=== PATIENT | male | born 1955 | race Caucasian/White ===

== ENCOUNTER 2019-04-28 15:04 | Inpatient (IN) | payer MEDICARE, MEDICAID, SELFPAY ==
[2019-04-28] VITALS (9 sets, daily range): BP systolic 107–139; BP diastolic 77–84; PULSE 87–121; RESP 18–20; TEMP 36.3–37; O2SAT 95–100; BMI 32.3
--- NOTE | ~2019-04-28 | XR_ITS ---
EXAMINATION: XR chest 2V EXAM DATE: 04/28/2019 16:10 INDICATION: Shortness of breath. Chest pain. TECHNIQUE: Frontal and lateral projections of the chest obtained and reviewed. There is no prior ángel dy for comparison. FINDINGS: The lungs are clear. There are no pleural effusions. The cardiomediastinal silhouette is within normal limits. There is no pneumothorax suspected. Patient has diffuse idiopathic skeletal h yperostosis (DISH). IMPRESSION: No acute cardiopulmonary findings. Reviewed, dictated and finalized at location B. R TUNNEL KIL[facility]
--- NOTE | 2019-04-28 15:39 | ECG_ITS ---
Measurements Intervals [place] Rate: 117 P: OR: 0 QRS: 5 QRSD: 89 T: -35 QT: 296 QTc: 414 Interpretive Statements ATRIAL FIBRILLATION WITH RAPID VENTRICULAR RESPONSE ANTEROSEPTAL INFARCT, AGE INDETERMINATE BORDERLINE T WAVE ABNORMALITY- LATERAL LEADS BASELINE ARTIFACT- I, II, AVF, V5-V6 ABNORMAL ECG Electronically Signed On 04-28-2019 16:28:11 [employer] by Kar Hall D.O.
--- NOTE | 2019-04-28 15:47 | PC.NURSE ---
This RN attempted to obtain flu swab, patient grabbed this RNs hand and yells It is intolerable and I wont do it. Pt refused to let RN obtain swab
[2019-04-28 15:50] LABS: Basophils Absolute Auto 0.1 K/mm3 (0.0-0.1); Basophils Percent Auto 0.5 % (0.2-1.2); Eosinophils Absolute Auto 0.1 K/mm3 (0-0.3); Eosinophils Percent Auto 0.3 % (0-4.4); Hematocrit 50.6 % (42.0-52.0); Immature Granulocyte Absolute 0.07 K/mm3 (0.00-0.031); Immature Granulocyte Percent A 0.5 % (0-0.5); Lymphocytes Absolute Auto 2.42 K/mm3 (0.9-3.2); Lymphocytes Percent Auto 16.7 % (18.3-44.2); Mean Corpuscular HGB Conc 33.6 g/dl (32-36); Mean Corpuscular Hemoglobin 28.9 pg (26-34); Mean Corpuscular Volume 86.1 fl (80-100); Mean Platelet Volume 9.7 fl (7.4-10.4); Monocytes Absolute Auto 1.2 K/mm3 (0.1-0.6); Monocytes Percent Auto 8.2 % (2.6-8.5); Neutrophils Absolute Auto 10.7 K/mm3 (1.3-6.7); Neutrophils Percent Auto 73.8 % (45.5-73.1); Platelet Count Result 410 k/mm3 (150-375); Red Blood Count 5.88 M/mm3 (4.6-6.20); Red Cell Distribution Width 15.1 % (11.5-14.5); White Blood Count 14.5 K/mm3 (4.5-10.0)
[2019-04-28 15:59] LABS: Prothrombin Time 12.6 Seconds (11.1-14.7)
[2019-04-28 16:00] LABS: Partial Thromboplastin Time 25.2 SECONDS (22.3-36.8)
[2019-04-28 16:01] LABS: Blood Urea Nitrogen 25 mg/dL (9-20); Calcium 9.3 mg/dL (8.4-10.2); Carbon Dioxide 29 mmol/L (22-30); Chloride 98 mmol/L (98-107); Estimated Glomerular Filt Rate 44; Glucose 146 mg/dL (75-110); Potassium 3.3 mmol/L (3.4-5.0); Sodium 139 mmol/L (137-145)
[2019-04-28 16:13] LABS: Troponin I 0.015 ng/mL (0.000-0.034)
--- NOTE | 2019-04-28 18:04 | ED.GENADULT ---
HPI - General Adult General Chief complaint: Upper Respiratory Infection Stated complaint: I think I have pneumonia Time Seen by Provider: 04/28/19 17:18 History of Present Illness HPI narrative: Patient is a 63-year-old male who presents ER with 2 issues. Patient reports he has had some runny nose with sore throat and productive cough over the last week. Is not gotten better. Is since progressed into him developing shortness of breath with exertion as well as some slight chest tightness. No fevers or chills or body aches. Denies night sweats. No previous cardiac history. No history of arrhythmia. Shortness of breath improves with rest. Chest tightness is without radiation. Related Data Allergies Allergy/AdvReac Type Severity Reaction Status Date / Time No Known Allergies Allergy Verified 04/28/19 17:26 Review of Systems Review of Systems: All systems reviewed & are unremarkable except as noted in HPI and below Constitutional: Constitutional: Denies chills, Reports fatigue and Denies fever(s) ENT: Reports nasal congestion and Reports sore throat Cardiovascular: Cardiovascular: Reports chest pain, Denies rapid heart rate and Denies radiating jaw, neck or arm pain Respiratory: Respiratory: Denies chest congestion, Reports cough, Reports dyspnea and Denies wheezing Gastrointestinal: Gastrointestinal: Denies abdominal pain, Denies nausea and Denies vomiting PMFSH Past Medical History Medical History (Updated 04/28/19 @ 19:25 by Bala Reyna MD) Hypertension Surgical History Surgical History (Updated 04/28/19 @ 18:06 by Bala Reyna MD) H/O hand surgery Social History Social History (Updated 04/28/19 @ 18:07 by Bala Reyna MD) Substance use type: marijuana Gender identity (if verbalized by the patient): Male Exam Narrative: Exam Narrative: GENERAL: Well-appearing, well-nourished, and in no acute distress. HEAD: Normocephalic, atraumatic. ENT: Mucous membranes moist. CHEST: Clear to auscultation. No respiratory distress. HEART: Tachycardic and irregularly irregular. Normal peripheral pulses. ABDOMEN: Soft, nontender, nondistended, normal active bowel sounds. EXTREMITIES: Normal range of motion. No edema. SKIN: Warm, dry, no rash. NEURO: No focal deficits. Alert and oriented x3. PSYCH: Normal mood and affect. Course Course Emergency Course: Patient has had a good response to diltiazem 10 mg IV. His heart rate is 84 bpm but he is still in atrial fibrillation. Will consult cardiology and admit. Vital Signs Vital signs: Vital Signs Temperature 98.1 F 04/28/19 15:36 Pulse Rate 100 04/28/19 15:36 Respiratory Rate 19 04/28/19 15:36 Blood Pressure 107/78 04/28/19 15:36 Pulse Oximetry 100 04/28/19 15:36 Temperature 97.7 F 04/28/19 19:05 Pulse Rate 104 H 04/28/19 19:05 Respiratory Rate 18 04/28/19 19:05 Blood Pressure 139/81 04/28/19 19:05 Pulse Oximetry 95 04/28/19 19:05 Medical Decision Making Vital Signs Vital Signs: Vital Signs Temperature 98.1 F 04/28/19 15:36 Pulse Rate 100 04/28/19 15:36 Respiratory Rate 19 04/28/19 15:36 Blood Pressure 107/78 04/28/19 15:36 Pulse Oximetry 100 04/28/19 15:36 Temperature 97.7 F 04/28/19 19:05 Pulse Rate 104 H 04/28/19 19:05 Respiratory Rate 18 04/28/19 19:05 Blood Pressure 139/81 04/28/19 19:05 Pulse Oximetry 95 04/28/19 19:05 Lab Data Result diagrams: 04/28/19 15:45 04/28/19 15:45 Labs: Lab Results 04/28/19 04/28/19 04/28/19 Range/Units 15:45 15:45 15:45 WBC 14.5 H (4.5-10.0) K/mm3 RBC 5.88 (4.6-6.20) M/mm3 Hgb 17.0 (14.0-18.0) g/dL Hct 50.6 (42.0-52.0) % MCV 86.1 (80-100) fl MCH 28.9 (26-34) pg MCHC 33.6 (32-36) g/dl RDW 15.1 H (11.5-14.5) % Plt Count 410 H (150-375) k/mm3 MPV 9.7 (7.4-10.4) fl Immature Gran % (Auto) 0.5 (0-0.5) % Neut % (Auto) 73.8 H (
[2019-04-28 19:12] LABS: Troponin I 0.019 ng/mL (0.000-0.034)
[2019-04-28] MEDS: ENOXAPARIN 100 MG/ML SYRINGE 95 MG SUB-Q (19:45)
--- NOTE | 2019-04-28 20:46 | PM.IMHP ---
H&P: HPI History of Present Illness Chief complaint: Cough and exertional dyspnea Narrative: This is a pleasant 63 year old male with known HTN who presented to the hospital with a complaint of 1 week of ongoing productive cough of yellowish sputum, exertional shortness of breath, wheezing, sore throat and fevers. The patient today believed he might have pneumonia and decided to come to get checked out. Associated symptoms include congestion and fatigue. The patient was found to be atrial fibrillation w/ RVR in the ER tonight which is new to him. He denies any chest pain or palpitations. He also denies nausea, vomiting, abdominal pain, dysuria, hematuria, diarrhea, rectal bleeding, black stools or LE edema. He denies any other symptoms. Cardiology was consulted by ER provider and he was started on a Diltiazem IV drip for rate control. He was also given therapeutic Lovenox SC. He has no previous history of heart disease. He denies tobacco use but admits that he smokes marijuana all the time. Review of Systems Review of Systems: All systems reviewed & are unremarkable except as noted in HPI and below PMFSH Past Medical History Medical History Hypertension MRSA (methicillin resistant staph aureus) culture positive Surgical History Surgical History H/O hand surgery Previous back surgery Social History Social History Smoking status: Never smoker Alcohol intake: never Substance use: current Substance use type: marijuana Gender identity (if verbalized by the patient): Male Spiritual care concerns: No Comments Past Family medical history is unknown as the patient doesn't have any relation with his family. Meds Home Medications and Allergies Home Medications Medication Instructions Recorded Confirmed Type gabapentin 300 mg PO BID 04/28/19 04/28/19 History meloxicam 7.5 mg PO DAILY 04/28/19 04/28/19 History oxycodone 10 mg PO QID PRN 04/28/19 04/28/19 History Allergies Allergy/AdvReac Type Severity Reaction Status Date / Time No Known Allergies Allergy Verified 04/28/19 17:26 Vital Signs Vital Signs - 24 hr 04/28/19 15:36 04/28/19 17:27 04/28/19 17:32 Temperature 36.7 C 37.0 C Pulse Rate 100 119 H 121 H Respiratory Rate 19 20 Blood Pressure 107/78 125/79 Pulse Oximetry 100 99 04/28/19 19:05 Temperature 36.5 C Pulse Rate 104 H Respiratory Rate 18 Blood Pressure 139/81 Pulse Oximetry 95 Exam Const: General: cooperative, alert and awake Nutritional Appearance: overweight Orientation/consciousness: patient oriented x3 HENMT: Head: normal to inspection General nose exam: Normal external nose present Face and sinus: normal facial exam Mouth: Yes Normal oral and palatal mucosa present and Yes oropharynx normal (erythematous++ ) Eyes: Pupils: Equal, round and reactive pupils present EOM: EOMs intact bilaterally Neck: Neck: supple and no JVD Thyroid: thyroid normal Lymphatic: lymphadenopathy not noted Resp: Effort & Inspection: normal respiratory effort Auscultation: crackles (bibasilar++) Cardio: Rate: tachycardic Rhythm: abnormal rhythm irregularly irregular Heart sounds: no murmurs GI: Inspection: normal to inspection Auscultation: normal bowel sounds Skin: General skin exam: normal color and no rashes or lesions noted Neuro: General: patient oriented x3 Cranial nerves: Yes CN's II-XII intact bilaterally and Yes Equal, round and reactive pupils present Speech: normal speech Motor exam (neuro): 5/5 motor strength present throughout Sensory Exam: normal sensation Extrem: General: normal to inspection and no edema Psych: Mental Status: mental status grossly normal Affect: normal affect H&P: Results Labs Labs: Short CBC 04/28/19 Range/Units 15:45 WBC 14.5 H (4.5-10.0) K/mm3 Hgb 17.0 (14.0
--- NOTE | 2019-04-28 20:54 | PC.NURSE ---
Patient report faxed to IMU.
--- NOTE | 2019-04-28 21:36 | ADMGEN ---
This patient, Coleman Thompson, was admitted to IMU Room 214-01. Patient/family oriented to hospital policies and general routines including ID bracelet, bed and alarms, visiting hours, pain management, procedures, bathroom and other care routines, personal items, smoking policy, room service/diet, and visiting hours. Valuables list has been completed. Information on how to activate the Rapid Response Team has been discussed. Patient/Family are encouraged to report perceived risks to care and to ask questions if they do not understand what they are told or what they should do.
[2019-04-28] MEDS: GUAIFENESIN/DEXTROMETHORPHAN 10 ML UDC PO (22:09)
[2019-04-28 22:36] LABS: Troponin I 0.021 ng/mL (0.000-0.034)
[2019-04-28] MEDS: SODIUM CHLORIDE 0.9% IV 1,000 ML 120 ML IV CONT (23:16)
[2019-04-29] VITALS (27 sets, daily range): BP systolic 112–153; BP diastolic 74–91; PULSE 68–130; RESP 18–73; TEMP 36.1–36.9; O2SAT 96–100
[2019-04-29 04:53] LABS: Basophils Percent Auto 0.2 % (0.2-1.2); Eosinophils Absolute Auto 0.1 K/mm3 (0-0.3); Eosinophils Percent Auto 0.9 % (0-4.4); Hematocrit 43.5 % (42.0-52.0); Hemoglobin 14.7 g/dL (14.0-18.0); Immature Granulocyte Percent A 0.7 % (0-0.5); Lymphocytes Absolute Auto 4.26 K/mm3 (0.9-3.2); Lymphocytes Percent Auto 31.5 % (18.3-44.2); Mean Corpuscular HGB Conc 33.8 g/dl (32-36); Mean Corpuscular Hemoglobin 29.2 pg (26-34); Mean Corpuscular Volume 86.5 fl (80-100); Mean Platelet Volume 9.9 fl (7.4-10.4); Monocytes Absolute Auto 1.2 K/mm3 (0.1-0.6); Monocytes Percent Auto 8.6 % (2.6-8.5); Neutrophils Absolute Auto 7.9 K/mm3 (1.3-6.7); Neutrophils Percent Auto 58.1 % (45.5-73.1); Platelet Count Result 368 k/mm3 (150-375); Red Blood Count 5.03 M/mm3 (4.6-6.20); Red Cell Distribution Width 15.1 % (11.5-14.5); White Blood Count 13.5 K/mm3 (4.5-10.0)
[2019-04-29 05:14] LABS: Blood Urea Nitrogen 26 mg/dL (9-20); Calcium 8.1 mg/dL (8.4-10.2); Carbon Dioxide 26 mmol/L (22-30); Chloride 98 mmol/L (98-107); Estimated CRCL calculation 51 ml/min; Estimated Glomerular Filt Rate 47; Glucose 107 mg/dL (75-110); Potassium 2.8 mmol/L (3.4-5.0); Sodium 137 mmol/L (137-145)
--- NOTE | 2019-04-29 06:00 | ECHO_ITS ---
Patient Info Name: Coleman Thompson Age: 63 years : 1955 Gender: Male Ht: 69 in Wt: 219 lbs BSA: 2.23 m2 HR: 74 bpm Heart Rhythm: Sinus Rhythm Technical Quality: Good Exam Date: 04/29/2019 9:54 AM Exam Location: [facility] Patient Status: Inpatient Admit Date: 04/28/2019 Staff Ordering Physician: Bala Reyna MD [employer] Operator: Alexander Mcknight RDCS, RT Attending Provider: Maciej Hatch MD Referring Physician: Axel MAYS; Exam Type: CA echo doppler color flow Study Info Indications I48.0 - Paroxysmal atrial fibrillation Complete two-dimensional, color flow and Doppler transthoracic echocardiogram is performed. Summary 1. Left ventricular chamber dimension is normal. 2. Left ventricular systolic function is normal, estimated at 55-60%. 3. Left atrial chamber dimension is mildly enlarged. 4. Modest aortic sclerosis otherwise no significant valvular disease. 5. Patient in normal sinus rhythm at the time of this exam. Left Ventricle Left ventricular chamber dimension is normal. Left ventricular systolic function is normal, estimated at 55-60%. There is mild concentric increased left ventricular wall thickness. The left ventricular diastolic function is normal. Right Ventricle Right ventricular chamber dimension is normal. Left Atria Left atrial chamber dimension is mildly enlarged. Right Atria Right atrial chamber dimension is normal. Aortic Valve The aortic valve is trileaflet. There is mild aortic valve sclerosis. Pulmonic Valve The pulmonic valve is not well visualized. Mitral Valve The mitral valve has normal leaflets. Tricuspid Valve The tricuspid valve leaflets are normal. Pericardium/Pleural The pericardium appears normal. Aorta The aortic root size at the sinus of Valsalva is normal. Left Ventricular Outflow Tract Name Value Normal LVOT 2D LVOT Diameter 2.0 cm LVOT Doppler LVOT Peak Gradient 4 mmHg LVOT Mean Gradient 2 mmHg LVOT VTI 19 cm LVOT VTI/AV VTI Ratio 0.7 LVOT Stroke Volume 59 ml LVOT CO 4.5 l/min LVOT CI 2.0 l/min/m2 Pulmonic Valve Name Value Normal PV Doppler PV Peak Gradient 4 mmHg Mitral Valve Name Value Normal MV Doppler MV Decel Stephenson 402 cm/s2 MV PHT 59 ms MV Area (PHT) 3.7 cm2 4.0-5.0 MV Diastolic Fu
[2019-04-29 06:58] LABS: Free T4 Free Thyroxine Reflex 1.28 ng/dL (0.78-2.19)
[2019-04-29 07:38] LABS: Total Triiodothyronine (T3) 1.02 NG/ML (0.97-1.69)
[2019-04-29] MEDS: GABAPENTIN 300 MG CAPSULE PO ×2 (09:19→16:19)
[2019-04-29] MEDS: POTASSIUM CHLORIDE 20 MEQ TABLET 40 MEQ PO ×3 (09:20→17:43)
[2019-04-29] MEDS: ENOXAPARIN 100 MG/ML SYRINGE 95 MG SUB-Q (09:21)
[2019-04-29] MEDS: GUAIFENESIN/DEXTROMETHORPHAN 10 ML UDC PO (09:32)
--- NOTE | 2019-04-29 13:14 | PM.CNCAR ---
Assessment and Plan Additional Plan This is a 63-year-old patient with a reported history of hypertension but does not appear to be on any antihypertensive medications. After a gastrointestinal illness last week he reported the onset of palpitations yet last evening and was found to be in AFib with RVR. With IV diltiazem his rate was controlled and he then converted spontaneously to sinus rhythm. I would recommend: Discontinue IV diltiazem Start oral beta-maria antonia Discontinue Lovenox Start oral anticoagulant Await echocardiogram results Chance Williamson MD [facility] History of Present Illness History of Present Illness Consult date/time: Date of service: 04/29/19 13:14 Consult reason: atrial fibrillation Reason For Visit: Cough and exertional dyspnea Narrative: This is a 63-year-old man up seeing today at the request of the hospitalist because of atrial fibrillation. He is unknown to me prior to this encounter. He entered the hospital through the emergency room last evening where he was reporting episodes of palpitations being aware of tachycardia and irregular pulse as well as some mild chest pain. He states that he began to feel unwell last week with a illness that was marked by some nausea some vomiting and diarrhea. The symptoms have largely subsided but he felt very weak afterwards and then came in last evening because of the symptoms that his heart was beating rapidly and irregularly. He was found to be in atrial fib with rapid ventricular response. He was placed on IV diltiazem and anticoagulated with therapeutic dose of Lovenox. He was seen by the hospitalist last evening. While on IMU on telemetry he has converted to normal sinus rhythm. He is otherwise asymptomatic at this time and seems to be feeling well. IV diltiazem is still running. The patient states that he has longstanding hypertension his home medications however do not include any sort of antihypertensive medications. He is not known to have any dyslipidemia or diabetes he does have a chronic pain problem due to previous back surgery. He states he lives in a home that he calls a [employer] with other friends. [place] He states his PCP is up in the [place] area he does not have a position in the [facility]. He states he has had episodes of palpitations like this off and on in the past but has not had a specific cardiac diagnosis made. He does not describe any exertional chest pain orthopnea PND or edema. An echocardiogram has been done this morning but has not yet been interpreted. Review of Systems Constitutional: Constitutional: Reports fatigue and Reports lethargy Eyes: Eyes: Reports no additional eye complaints ENT: Reports system reviewed and no additional complaints, except as documented Cardiovascular: Cardiovascular: Reports as per HPI and Reports palpitations Respiratory: Respiratory: Reports no additional respiratory complaints Gastrointestinal: Gastrointestinal: Reports as per HPI, Reports no additional gastrointestinal complaints and Reports vomiting Musculoskeletal: Musculoskeletal: Reports no additional musculoskeletal complaints Integumentary/Breasts: Skin/Breast: Reports system reviewed and no additional complaints, except as docu Neurologic: Reports system reviewed and no additional complaints, except as documented PMFSH Past Medical History Medical History Hypertension MRSA (methicillin resistant staph aureus) culture positive Surgical History Surgical History H/O hand surgery Previous back surgery Social History Social History Smoking status: Never smoker Alcohol intake: never Substance use: current Substance use type: marijuana Gender identity (if verbalized by the patient): Male Spiritual care concerns
[2019-04-29] MEDS: SODIUM CHLORIDE 0.9% IV 1,000 ML 120 ML IV CONT ×2 (13:21→23:24)
--- NOTE | 2019-04-29 14:04 | PM.IMPN ---
Progress Note: A&P Assessment and Plan (1) Atrial fibrillation with rapid ventricular response: Code(s): I48.91 - Unspecified atrial fibrillation Status: Acute Assessment and Plan: Cardiology changed to beta-maria antonia and start Eliquis for anticoagulation anticoagulation. TSH w/ reflex T4 fluid overlying low, Echocardiogram pending (2) Acute bronchitis: Qualifiers: Bronchitis organism: unspecified organism Qualified Code(s): J20.9 - Acute bronchitis, unspecified Code(s): J20.9 - Acute bronchitis, unspecified Status: Acute Assessment and Plan: Antitussives, scheduled bronchodilators w/ Xopenex, antipyretics as needed. Cough is already better (3) Acute renal failure: Qualifiers: Acute renal failure type: unspecified Qualified Code(s): N17.9 - Acute kidney failure, unspecified Code(s): N17.9 - Acute kidney failure, unspecified Status: Acute Assessment and Plan: IV fluid challenge overnight. Monitor renal function and urine output. Avoid nephrotoxic agents, continue IV hydration and potassium replacement If creatinine remains elevated then renal sonogram (4) Leukocytosis: Qualifiers: Leukocytosis type: other Qualified Code(s): D72.828 - Other elevated white blood cell count Code(s): D72.829 - Elevated white blood cell count, unspecified Status: Acute Assessment and Plan: Likely secondary to respiratory illness. Repeat a.m. (5) Hypertension: Qualifiers: Hypertension type: unspecified Qualified Code(s): I10 - Essential (primary) hypertension Code(s): I10 - Essential (primary) hypertension Status: Chronic Assessment and Plan: stable. Monitor blood pressure. No listed home meds. Will be on beta-maria antonia now (6) Marijuana abuse: Code(s): F12.10 - Cannabis abuse, uncomplicated Status: Chronic Assessment and Plan: Dr Hatch counseled the patient regarding marijuana cessation. Subjective Date/time seen: 04/29/19 14:04 Interval history: Date of visit 04/29. 58-year-old white male presented with of coughing and weakness new onset atrial fib of unknown duration admitted for the same.. On diltiazem drip converted to sinus rhythm and does feel better. Has been seen by Cardiology and anticoagulation recommended. No chest pain. Echo pending Exam Narrative: Exam Narrative: Blood pressure 112/76 pulse is 70 and regular afebrile Pupils equal reactive to light sclera anicteric Lungs clear CV regular rate rhythm at this time no murmurs or gallops Abdomen soft nontender Extremities without edema distal pulses are 2+ Neuro alert no focal deficits Objective Data Vital Signs Vital Signs: Vital Signs - 24 hr 04/28/19 15:36 04/28/19 17:27 04/28/19 17:32 Temperature 36.7 C 37.0 C Pulse Rate 100 119 H 121 H Respiratory Rate 19 20 Blood Pressure 107/78 125/79 Pulse Oximetry 100 99 04/28/19 19:05 04/28/19 20:45 04/28/19 20:49 Temperature 36.5 C Pulse Rate 104 H 90 90 Respiratory Rate 18 20 Blood Pressure 139/81 125/84 Pulse Oximetry 95 98 04/28/19 21:50 04/28/19 22:00 04/28/19 23:52 Temperature 36.3 C L 36.5 C Pulse Rate 91 91 89 Respiratory Rate 20 18 Blood Pressure 132/84 122/77 Pulse Oximetry 98 98 04/29/19 00:00 04/29/19 02:00 04/29/19 03:55 Temperature 36.6 C Pulse Rate 82 76 83 Respiratory Rate 20 Blood Pressure 129/74 Pulse Oximetry 98 04/29/19 04:00 04/29/19 06:00 04/29/19 07:47 Temperature 36.9 C Pulse Rate 78 75 68 Respiratory Rate 22 H Blood Pressure 125/82 Pulse Oximetry 99 04/29/19 08:34 04/29/19 08:45 04/29/19 11:08 Temperature 36.6 C Pulse Rate 68 74 Respiratory Rate 20 20 Blood Pressure Pulse Oximetry 04/29/19 11:15 04/29/19 12:29 04/29/19 13:58 Temperature 36.6 C 36.1 C L Pulse Rate 71 75 Respiratory Rate 20 18 Blood Pressure 112/76 Pulse Oximetry 96
[2019-04-29] MEDS: METOPROLOL SUCCINATE EXT REL 50 MG TABCR PO (16:14)
[2019-04-29] MEDS: RIVAROXABAN 20 MG TABLET PO (16:19)
[2019-04-30] VITALS (22 sets, daily range): BP systolic 136–172; BP diastolic 78–96; PULSE 63–97; RESP 18–22; TEMP 36.3–36.9; O2SAT 97–99
[2019-04-30 06:04] LABS: Basophils Absolute Auto 0.1 K/mm3 (0.0-0.1); Basophils Percent Auto 0.4 % (0.2-1.2); Eosinophils Absolute Auto 0.2 K/mm3 (0-0.3); Eosinophils Percent Auto 1.2 % (0-4.4); Hematocrit 43.7 % (42.0-52.0); Hemoglobin 14.3 g/dL (14.0-18.0); Immature Granulocyte Absolute 0.14 K/mm3 (0.00-0.031); Immature Granulocyte Percent A 1.2 % (0-0.5); Lymphocytes Absolute Auto 3.49 K/mm3 (0.9-3.2); Mean Corpuscular HGB Conc 32.7 g/dl (32-36); Mean Corpuscular Hemoglobin 28.8 pg (26-34); Mean Corpuscular Volume 87.9 fl (80-100); Mean Platelet Volume 9.9 fl (7.4-10.4); Monocytes Percent Auto 8.1 % (2.6-8.5); Neutrophils Absolute Auto 7.2 K/mm3 (1.3-6.7); Neutrophils Percent Auto 60.1 % (45.5-73.1); Platelet Count Result 402 k/mm3 (150-375); Red Blood Count 4.97 M/mm3 (4.6-6.20); Red Cell Distribution Width 15.8 % (11.5-14.5)
[2019-04-30 06:25] LABS: Alanine Aminotransferase 90 U/L (4-50); Albumin Level 3.4 g/dL (3.5-5.1); Alkaline Phosphatase 89 U/L (38-126); Aspartate Amino Transferase 94 U/L (17-59); Bilirubin,Total 0.4 mg/dL (0.2-1.3); Blood Urea Nitrogen 15 mg/dL (9-20); Carbon Dioxide 28 mmol/L (22-30); Chloride 103 mmol/L (98-107); Estimated CRCL calculation 64 ml/min; Estimated Glomerular Filt Rate > 60; Glucose 99 mg/dL (75-110); Magnesium 1.5 mg/dL (1.6-2.3); Phosphorus 2.5 mg/dL (2.5-4.5); Potassium 3.4 mmol/L (3.4-5.0); Sodium 141 mmol/L (137-145)
[2019-04-30] MEDS: MAGNESIUM SULF 2 GM/WATER 50ML 2 GM/50 ML BAG IVPB (09:07)
[2019-04-30] MEDS: POTASSIUM CHLORIDE 20 MEQ TABLET 40 MEQ PO (09:07)
[2019-04-30] MEDS: METOPROLOL SUCCINATE EXT REL 50 MG TABCR PO (09:08)
[2019-04-30] MEDS: GABAPENTIN 300 MG CAPSULE PO ×2 (09:09→17:26)
[2019-04-30 09:30] LABS: Hepatitis B Surface Antigen Negative (Negative)
[2019-04-30 09:35] LABS: HAV RESULT Negative (Negative); Hepatitis B Core IgM Result Negative (Negative)
[2019-04-30 10:40] LABS: Hepatitis C Virus Antibody Negative (Negative)
--- NOTE | 2019-04-30 11:00 | PM.PNCARD ---
Progress Note: A&P Additional Plan Hypertension with paroxysmal atrial fibrillation seemingly good response to beta-maria antonia. Systemic anticoagulation is indicated and initiated. I am not sure that the patient is going to be compliant with this following discharge Need to make sure the patient is stable and not lightheaded upon arising since he has been anticoagulated. At this point hemodynamics and rhythm appear to be stable and I am not planning on adjusting his medications today Time Spent With Patient Time with patient: 15 - 25 minutes Subjective Date/time seen: Date of service: 04/30/19 11:00 Interval history: Follow-up visit for paroxysmal atrial fibrillation Currently in sinus rhythm on beta-maria antonia Anticoagulated with Xarelto Patient feels well other than lightheadedness when he gets up. Blood pressure and cardiac rhythm are fine reason for lightheadedness is not clear Exam Const: General: comfortable and no acute distress HENMT: Mouth: Yes moist mucous membranes Eyes: Sclera: sclerae normal Pupils: Equal, round and reactive pupils present Neck: Neck: supple and no JVD Thyroid: thyroid normal Resp: Effort & Inspection: normal respiratory effort Auscultation: clear to auscultation bilaterally Cardio: Rate: regular rate Rhythm: regular rhythm GI: Auscultation: normal bowel sounds Skin: General skin exam: normal color Neuro: Cognition (Neuro): normal cognition Extrem: General: normal to inspection Objective Data Vital Signs Vital Signs: Vital Signs - 24 hr 04/29/19 11:08 04/29/19 11:15 04/29/19 12:00 Temperature 36.6 C 36.6 C Pulse Rate 73 Respiratory Rate Blood Pressure Pulse Oximetry 04/29/19 12:29 04/29/19 13:58 04/29/19 14:00 Temperature 36.1 C L Pulse Rate 71 75 74 Respiratory Rate 20 18 Blood Pressure 112/76 Pulse Oximetry 96 04/29/19 14:17 04/29/19 16:00 04/29/19 16:14 Temperature Pulse Rate 77 76 73 Respiratory Rate 18 Blood Pressure Pulse Oximetry 04/29/19 17:00 04/29/19 18:00 04/29/19 19:54 Temperature 36.3 C L 36.2 C L Pulse Rate 73 68 130 H Respiratory Rate 20 73 H Blood Pressure 153/78 H 143/91 H Pulse Oximetry 100 96 04/29/19 20:00 04/29/19 21:21 04/29/19 21:28 Temperature Pulse Rate 73 71 73 Respiratory Rate 18 18 Blood Pressure Pulse Oximetry 04/29/19 22:00 04/29/19 23:54 04/30/19 00:00 Temperature 36.6 C Pulse Rate 81 74 73 Respiratory Rate 18 Blood Pressure 147/87 H Pulse Oximetry 99 04/30/19 02:00 04/30/19 03:18 04/30/19 03:27 Temperature Pulse Rate 63 72 85 Respiratory Rate 18 18 Blood Pressure Pulse Oximetry 04/30/19 04:00 04/30/19 05:58 04/30/19 08:00 Temperature 36.3 C L 36.8 C Pulse Rate 73 69 80 Respiratory Rate 18 22 H Blood Pressure 146/87 H 172/96 H Pulse Oximetry 98 99 04/30/19 09:08 04/30/19 09:42 04/30/19 09:49 Temperature Pulse Rate 84 80 80 Respiratory Rate 20 20 Blood Pressure Pulse Oximetry Intake/Output Intake/Output: Intake & Output 04/27/19 04/28/19 04/29/19 04/30/19 23:59 23:59 23:59 23:59 Intake Total 3820.0 1754 Output Total 1475 2600 Balance 2345.0 -846 Meds/Results Medications: Active Medications Generic Name Dose Route Start Last Admin Trade Name Freq PRN Reason Stop Dose Admin Acetaminophen 650 mg 04/28/19 20:05 Tylenol Tablet PO Q4H PRN Mild Pain (1-3) or Fever Hydrocodone Bitart/Acetaminophen 1 tab 04/28/19 20:05 04/29/19 21:37 [place] 5-325 Mg PO 1 tab Q4H PRN Administration Pain Rated 4-6 Gabapentin 300 mg 04/28/19 23:05 04/30/19 09:09 Neurontin PO 300 mg BID BEN Administration Sodium Chloride 1,000 mls @ 120 mls/hr 04/28/19 23:05 04/30/19 04:41 Normal Saline Iv IV CONT 120 mls/hr .Q8H20M BEN Infusion Levalbuterol HCl 1.25 mg 04/29/19 02:00 04/30/19 09:42 Xopenex 1.25 Mg/0.5 Ml INHALATION 1.25 mg Q6HRT BEN Adm
--- NOTE | 2019-04-30 12:29 | PM.IMPN ---
Progress Note: A&P Assessment and Plan (1) Atrial fibrillation with rapid ventricular response: Code(s): I48.91 - Unspecified atrial fibrillation Status: Acute Assessment and Plan: Cardiology changed to beta-maria antonia and started xarelto for anticoagulation. TSH w/ reflex T4 fluid overlying low, Echocardiogram normal with EF 50-55% (2) Acute bronchitis: Qualifiers: Bronchitis organism: unspecified organism Qualified Code(s): J20.9 - Acute bronchitis, unspecified Code(s): J20.9 - Acute bronchitis, unspecified Status: Acute Assessment and Plan: Antitussives, scheduled bronchodilators w/ Xopenex, antipyretics as needed. Cough is already better (3) Acute renal failure: Qualifiers: Acute renal failure type: unspecified Qualified Code(s): N17.9 - Acute kidney failure, unspecified Code(s): N17.9 - Acute kidney failure, unspecified Status: Acute Assessment and Plan: IV fluid challenged. Monitor renal function and urine output. creatinine down to 1.2 today (4) Leukocytosis: Qualifiers: Leukocytosis type: other Qualified Code(s): D72.828 - Other elevated white blood cell count Code(s): D72.829 - Elevated white blood cell count, unspecified Status: Acute Assessment and Plan: Likely secondary to respiratory illness. Repeat today down to 12K (5) Hypertension: Qualifiers: Hypertension type: unspecified Qualified Code(s): I10 - Essential (primary) hypertension Code(s): I10 - Essential (primary) hypertension Status: Chronic Assessment and Plan: stable. Monitor blood pressure. No listed home meds. Will be on beta-maria antonia now (6) Marijuana abuse: Code(s): F12.10 - Cannabis abuse, uncomplicated Status: Chronic Assessment and Plan: Dr Hatch counseled the patient regarding marijuana cessation. (7) Elevated LFTs: Code(s): R94.5 - Abnormal results of liver function studies Status: Acute Assessment and Plan: check hep A,B,C profile Subjective Date/time seen: 04/30/19 12:29 Interval history: Date of visit . 58-year-old white male presented with coughing and weakness new onset atrial fib of unknown duration admitted for the same.. On diltiazem drip converted to sinus rhythm and does feel better. Has been seen by Cardiology and anticoagulation recommended. No chest pain. Echo normal but some lightheaded today Exam Narrative: Exam Narrative: Blood pressure 144/86 pulse is 80 and regular afebrile Pupils equal reactive to light sclera anicteric Lungs clear with faint end expiratory wheeze CV regular rate rhythm at this time no murmurs or gallops Abdomen soft nontender Extremities without edema distal pulses are 2+ Neuro alert no focal deficits Objective Data Vital Signs Vital Signs: Vital Signs - 24 hr 04/29/19 13:58 04/29/19 14:00 04/29/19 14:17 Temperature Pulse Rate 75 74 77 Respiratory Rate 18 18 Blood Pressure Pulse Oximetry 04/29/19 16:00 04/29/19 16:14 04/29/19 17:00 Temperature 36.3 C L Pulse Rate 76 73 73 Respiratory Rate 20 Blood Pressure 153/78 H Pulse Oximetry 100 04/29/19 18:00 04/29/19 19:54 04/29/19 20:00 Temperature 36.2 C L Pulse Rate 68 130 H 73 Respiratory Rate 73 H Blood Pressure 143/91 H Pulse Oximetry 96 04/29/19 21:21 04/29/19 21:28 04/29/19 22:00 Temperature Pulse Rate 71 73 81 Respiratory Rate 18 18 Blood Pressure Pulse Oximetry 04/29/19 23:54 04/30/19 00:00 04/30/19 02:00 Temperature 36.6 C Pulse Rate 74 73 63 Respiratory Rate 18 Blood Pressure 147/87 H Pulse Oximetry 99 04/30/19 03:18 04/30/19 03:27 04/30/19 04:00 Temperature 36.3 C L Pulse Rate 72 85 73 Respiratory Rate 18 18 18 Blood Pressure 146/87 H Pulse Oximetry 98 04/30/19 05:58 04/30/19 08:00 04/30/19 09:08 Temperature 36.8 C Pulse Rate 69 80 84 Re
[2019-04-30] MEDS: RIVAROXABAN 20 MG TABLET PO (17:27)
[2019-05-01] VITALS (11 sets, daily range): BP systolic 142–156; BP diastolic 69–90; PULSE 56–99; RESP 18–20; TEMP 36.6–37; O2SAT 96–98
[2019-05-01 05:16] LABS: Basophils Absolute Auto 0.1 K/mm3 (0.0-0.1); Basophils Percent Auto 0.5 % (0.2-1.2); Eosinophils Absolute Auto 0.2 K/mm3 (0-0.3); Eosinophils Percent Auto 1.2 % (0-4.4); Hematocrit 42.7 % (42.0-52.0); Immature Granulocyte Absolute 0.28 K/mm3 (0.00-0.031); Immature Granulocyte Percent A 1.9 % (0-0.5); Lymphocytes Absolute Auto 4.21 K/mm3 (0.9-3.2); Lymphocytes Percent Auto 29.1 % (18.3-44.2); Mean Corpuscular HGB Conc 32.8 g/dl (32-36); Mean Corpuscular Hemoglobin 29.2 pg (26-34); Mean Corpuscular Volume 89.1 fl (80-100); Mean Platelet Volume 9.7 fl (7.4-10.4); Monocytes Absolute Auto 1.3 K/mm3 (0.1-0.6); Monocytes Percent Auto 9.3 % (2.6-8.5); Neutrophils Absolute Auto 8.4 K/mm3 (1.3-6.7); Platelet Count Result 423 k/mm3 (150-375); Red Blood Count 4.79 M/mm3 (4.6-6.20); Red Cell Distribution Width 15.8 % (11.5-14.5); White Blood Count 14.5 K/mm3 (4.5-10.0)
[2019-05-01 05:40] LABS: Blood Urea Nitrogen 14 mg/dL (9-20); Carbon Dioxide 30 mmol/L (22-30); Chloride 99 mmol/L (98-107); Estimated CRCL calculation 69 ml/min; Estimated Glomerular Filt Rate > 60; Glucose 95 mg/dL (75-110); Magnesium 1.7 mg/dL (1.6-2.3); Potassium 3.2 mmol/L (3.4-5.0); Sodium 140 mmol/L (137-145)
[2019-05-01] MEDS: POTASSIUM CHLORIDE 20 MEQ TABLET 40 MEQ PO (10:11)
[2019-05-01] MEDS: DOXYCYCLINE HYCLATE 100 MG TABLET PO (10:12)
[2019-05-01] MEDS: METOPROLOL SUCCINATE EXT REL 50 MG TABCR PO (10:12)
[2019-05-01] MEDS: GABAPENTIN 300 MG CAPSULE PO (10:13)
[2019-05-01] MEDS: methylPREDNISolone SOD SUCC 125 MG VIAL 60 MG IV PUSH (10:13)
--- NOTE | 2019-05-01 16:20 | PM.DS ---
DS: Diagnosis Admitting Diagnosis Admitting Diagnosis: Unspecified atrial fibrillation Discharge Diagnosis (1) Atrial fibrillation with rapid ventricular response: Code(s): I48.91 - Unspecified atrial fibrillation Status: Acute Assessment and Plan: Cardiology changed to beta-maria antonia and started xarelto for anticoagulation. TSH borderline low, Echocardiogram normal with EF 50-55% Discharge home on metoprolol succinate 50 daily and Xarelto 20 daily (2) Acute bronchitis: Qualifiers: Bronchitis organism: unspecified organism Qualified Code(s): J20.9 - Acute bronchitis, unspecified Code(s): J20.9 - Acute bronchitis, unspecified Status: Acute Assessment and Plan: Persistent cough with sputum production and low-grade leukocytosis. Still had expiratory wheezes though chest x-ray and physical exam lungs were clear Placed on doxycycline 100 b.i.d. for 7 days and prednisone 20 b.i.d. for 6 days. (3) Acute renal failure: Qualifiers: Acute renal failure type: unspecified Qualified Code(s): N17.9 - Acute kidney failure, unspecified Code(s): N17.9 - Acute kidney failure, unspecified Status: Acute Assessment and Plan: With initial IV hydration creatinine continue to fall and a day of discharge was 1.1 (4) Leukocytosis: Qualifiers: Leukocytosis type: other Qualified Code(s): D72.828 - Other elevated white blood cell count Code(s): D72.829 - Elevated white blood cell count, unspecified Status: Acute Assessment and Plan: Likely secondary to respiratory illness. Chest x-ray clear and no fever (5) Hypertension: Qualifiers: Hypertension type: unspecified Qualified Code(s): I10 - Essential (primary) hypertension Code(s): I10 - Essential (primary) hypertension Status: Chronic Assessment and Plan: Fair control with beta-maria antonia daily. Will follow with primary care (6) Marijuana abuse: Code(s): F12.10 - Cannabis abuse, uncomplicated Status: Chronic Assessment and Plan: Dr Hatch counseled the patient regarding marijuana cessation. (7) Elevated LFTs: Code(s): R94.5 - Abnormal results of liver function studies Status: Acute Assessment and Plan: Mildly elevated. Probable fatty infiltration. Hep a B and C profile negative. Liver was not imaged DS: Summary Hospital Course Hospital Course: 63-year-old white male presented to the emergency room for fear that he might have pneumonia. He had been coughing for several days. Chest x-ray was clear but found to have AFib rapid ventricular response. Placed on diltiazem drip and spontaneously converted to sinus rhythm. Seen by Cardiology and placed on beta-maria antonia daily 50 mg of metoprolol succinate along with Xarelto 20 daily. Echo revealed no structural abnormalities with ejection fraction 50-55% Will follow-up with his primary care which is in a suburb of [place]. If he stays in this area will follow-up with [facility] in 3-4 weeks Time Spent with Patient Time attestation: Total time spent providing and/or coordinating discharge services: 35 minutes Exam Narrative: Exam Narrative: Condition on discharge Blood pressure 144/84 pulse is 76 Lungs prolonged expiratory phase very faint end expiratory wheeze no rales or areas of consolidation CV regular rate and rhythm no murmurs Extremities without edema distal pulses are 2+ He was up and about with feeling better though occasional lightheadedness without change in blood pressure DS: Data Data Completed and Pending Labs on day of discharge: Labs from last 24 hours 05/01/19 05/01/19 04:30 04:30 WBC 14.5 H RBC 4.79 Hgb 14.0 Hct 42.7 MCV 89.1 MCH 29.2 MCHC 32.8 RDW 15.8 H Plt Count 423 H MPV 9.7 Immature Gran % (Auto) 1.9 H Neut % (Auto) 58.0 Lymph % (Auto) 29.1 Grady % (Auto) 9.3 H Eos % (Auto) 1.2 Baso % (Auto)
== END 2019-05-01 15:00 | disposition home or self-care (01) | DRG 309 ==
LOC: ANHED 20:10 → ANHIMU 20:50
PROVIDERS: Admitting Provider Family Medicine; Emergency Provider Emergency Medicine; Visit Provider Internal Medicine
DX: I48.91 Unspecified atrial fibrillation (principal); N17.9 Acute kidney failure, unspecified; J20.9 Acute bronchitis, unspecified; D72.828 Other elevated white blood cell count; I10 Essential (primary) hypertension; F12.10 Cannabis abuse, uncomplicated; R94.5 Abnormal results of liver function studies
CPT/HCPCS: 36415; 71046; 80048; 80074; 80076; 83735; 84100; 84132; 84439; 84443; 84480; 84484; 85025; 85610; 85730; 87081; 93005; 93306; 94640; 96365; 96366; 96372; 96376; 99285; A9270; J1650; J2930; J3475; J3480; J7030

== ENCOUNTER 2021-03-19 23:12 | Emergency (ER) | payer MEDICARE, SELFPAY ==
--- NOTE | ~2021-03-19 | XR_ITS ---
EXAMINATION: XR chest 2V DATE: 03/19/2021 23:47 INDICATION: Arrhythmia. TECHNIQUE: Frontal and lateral views of the chest were obtained. COMPARISON: Chest 2 views 04/28/2019 FINDINGS: The chest demonstrates clear lungs without pneumonia, pleural effusion, or pneumothorax. Th e heart size is normal. IMPRESSION: 1. No acute cardiopulmonary disease. Reviewed, dictated and finalized at location A. ICAL EDUCATION CONSULTANT
--- NOTE | 2021-03-19 23:14 | ECG_ITS ---
Measurements Intervals [place] Rate: 75 P: [place]: 0 QRS: -12 QRSD: 95 T: 20 QT: 390 QTc: 436 Interpretive Statements ATRIAL FIBRILLATION MINIMAL Q WAVES- INFERIOR LEADS ANTEROSEPTAL INFARCT, AGE INDETERMINATE BASELINE ARTIFACT- I, AVR, AVL, V2-V3, V6 ABNORMAL ECG Electronically Signed On 03-20-2021 6:39:29 REAL ESTATE ASSESSOR by Kar Hall D.O.
[2021-03-19 23:25] VITALS: BP 100/70; PULSE 55; RESP 16; TEMP 36.1; O2SAT 96
[2021-03-19 23:32] LABS: Basophils Percent Auto 0.4 % (0.2-1.2); Eosinophils Percent Auto 0.3 % (0-4.4); Hematocrit 53.1 % (42.0-52.0); Hemoglobin 17.8 g/dL (14.0-18.0); Immature Granulocyte Absolute 0.04 K/mm3 (0.00-0.031); Immature Granulocyte Percent A 0.5 % (0-0.5); Lymphocytes Absolute Auto 2.64 K/mm3 (0.9-3.2); Lymphocytes Percent Auto 35.5 % (18.3-44.2); Mean Corpuscular HGB Conc 33.5 g/dl (32-36); Mean Corpuscular Hemoglobin 28.3 pg (26-34); Mean Corpuscular Volume 84.3 fl (80-100); Mean Platelet Volume 9.4 fl (7.4-10.4); Monocytes Absolute Auto 0.8 K/mm3 (0.1-0.6); Monocytes Percent Auto 10.1 % (2.6-8.5); Neutrophils Percent Auto 53.2 % (45.5-73.1); Platelet Count Result 219 k/mm3 (150-375); Red Cell Distribution Width 17.8 % (11.5-14.5); White Blood Count 7.4 K/mm3 (4.5-10.0)
[2021-03-19 23:41] LABS: Alanine Aminotransferase 33 U/L (4-50); Alkaline Phosphatase 97 U/L (38-126); Anion Gap 10 mmol/L (8-16); Aspartate Amino Transferase 42 U/L (17-59); Bilirubin,Total 0.6 mg/dL (0.2-1.3); Blood Urea Nitrogen 24 mg/dL (9-20); Calcium 8.8 mg/dL (8.4-10.2); Carbon Dioxide 28 mmol/L (22-30); Chloride 97 mmol/L (98-107); Estimated CRCL calculation 41 ml/min; Estimated Glomerular Filt Rate 38; Glucose 114 mg/dL (65-110); Lipase 345 U/L (23-300); Potassium 3.8 mmol/L (3.4-5.0); Sodium 135 mmol/L (137-145)
[2021-03-19 23:47] LABS: INR 1.4; Prothrombin Time 17.1 Seconds (11.1-14.7)
[2021-03-19 23:48] LABS: Partial Thromboplastin Time 34.3 SECONDS (22.3-36.8)
[2021-03-19 23:52] LABS: Troponin I < 0.012 ng/mL (0.000-0.034)
[2021-03-20 02:21] VITALS: BP 118/84; PULSE 78; RESP 14; O2SAT 97
[2021-03-20 02:26] VITALS: BP 118/84; PULSE 73; RESP 17; O2SAT 96
[2021-03-20] MEDS: ASPIRIN 81 MG CHEWABLE TABLET 324 MG PO (02:38)
[2021-03-20 02:50] VITALS: BP 122/88; PULSE 65; RESP 18; O2SAT 95
[2021-03-20] MEDS: SODIUM CHLORIDE 0.9% IV 1,000 ML 999 ML IV CONT (02:52)
[2021-03-20 03:11] LABS: Troponin I < 0.012 ng/mL (0.000-0.034)
[2021-03-20 03:31] VITALS: BP 128/84; PULSE 68; RESP 23; O2SAT 94
--- NOTE | 2021-03-20 04:09 | ED.ARRPALP ---
HPI - Arrhythmia/Palpitations General Chief Complaint: Arrhythmia/Palpitations Stated Complaint: irregular heart beat, heart races Time Seen by Provider: 03/20/21 02:27 History of Present Illness HPI narrative: Patient is a 65-year-old male who presents ER with heart palpitations. Began early in the afternoon. Stout like his heart was racing. Unsure how long it lasted. Unsure if there is any aggravating factors. No chest pain or chest pressure. No loss of consciousness or dizziness. No focal numbness or weakness in arm or leg. Reports compliance with home medications. Has history of atrial fibrillation. He sees Dr. Williamson. He is on Xarelto as well as metoprolol. Related Data Home Medications Medication Instructions Recorded Confirmed gabapentin 300 mg PO BID 04/28/19 04/28/19 oxycodone 10 mg PO QID PRN 04/28/19 06/27/20 amlodipine 10 mg tablet 10 mg PO DAILY 06/27/20 06/27/20 benazepril 10 mg tablet 10 mg PO DAILY 06/27/20 06/27/20 bupropion HCl 150 mg 24 hr tablet, 150 mg PO QAM 06/27/20 06/27/20 extended release duloxetine 60 mg capsule,delayed 60 mg PO DAILY 06/27/20 06/27/20 release Allergies Allergy/AdvReac Type Severity Reaction Status Date / Time No Known Allergies Allergy Verified 04/28/19 17:26 Review of Systems Review of Systems: All systems reviewed & are unremarkable except as noted in HPI and below Constitutional: Constitutional: Denies chills, Denies fever(s) and Denies weakness ENT: Denies nasal congestion and Denies sore throat Cardiovascular: Cardiovascular: Denies chest pain, Reports rapid heart rate and Denies radiating jaw, neck or arm pain Respiratory: Respiratory: Denies cough, Denies dyspnea and Denies wheezing Gastrointestinal: Gastrointestinal: Denies nausea and Denies vomiting Neurologic: Denies dizziness, Denies syncope, Denies focal weakness and Denies numbness PMFSH Past Medical History Medical History (Updated 03/20/21 @ 04:13 by Bala Reyna MD) Hypertension MRSA (methicillin resistant staph aureus) culture positive Surgical History Surgical History H/O hand surgery Previous back surgery Social History Social History Smoking status: Never smoker Alcohol intake: never Substance use: current Substance use type: marijuana Gender identity (if verbalized by the patient): Male Spiritual care concerns: No Exam Narrative: GENERAL: Well-appearing, well-nourished, and in no acute distress. HEAD: Normocephalic, atraumatic. EYES: PERRL and EOMI. NECK: Supple. CHEST: Clear to auscultation. No respiratory distress. HEART: Irregular regular rate and rhythm. Normal peripheral pulses. ABDOMEN: Soft, nontender, nondistended. EXTREMITIES: Normal range of motion. No edema. SKIN: Warm, dry, no rash. NEURO: Alert and oriented x3. PSYCH: Normal mood and affect. Course Course Emergency Course: Appears dehydrated on blood work. Given 1 L IV fluid. No A. fib with RVR. Recommend follow-up with PCP. Vital Signs Vital signs: Vital Signs Temperature 97.0 F L 03/19/21 23:25 Pulse Rate 55 L 03/19/21 23:25 Respiratory Rate 16 03/19/21 23:25 Blood Pressure 100/70 03/19/21 23:25 Pulse Oximetry 96 03/19/21 23:25 Temperature 97.0 F L 03/19/21 23:25 Pulse Rate 68 03/20/21 03:31 Respiratory Rate 23 H 03/20/21 03:31 Blood Pressure 128/84 03/20/21 03:31 Pulse Oximetry 94 03/20/21 03:31 MDM - Arrhythmia/Palpitations Lab Data Result diagrams: 03/19/21 23:21 03/19/21 23:21 Labs: Lab Results 03/19/21 03/19/21 03/19/21 Range/Units 23:21 23:21 23:21 WBC 7.4 (4.5-10.0) K/mm3 RBC 6.30 H (4.6-6.20) M/mm3 Hgb 17.8 D (14.0-18.0) g/dL Hct 53.1 H (42.0-52.0) % MCV 84.3 (80-100) fl MCH 28.3 (26-34) pg MCHC 33.5 (32-36) g/dl RDW 17.8 H (11.5-14.5)
[2021-03-20 04:24] VITALS: BP 122/84; PULSE 66; RESP 18; O2SAT 96
== END 2021-03-20 04:26 | disposition home or self-care (01) ==
PROVIDERS: Emergency Provider Emergency Medicine
DX: R00.2 Palpitations (principal); E86.0 Dehydration; I48.91 Unspecified atrial fibrillation; I10 Essential (primary) hypertension; Z86.14 Personal history of Methicillin resistant Staphylococcus aureus infection; R94.31 Abnormal electrocardiogram [ECG] [EKG]; Z79.01 Long term (current) use of anticoagulants
CPT/HCPCS: 36415; 71046; 80053; 83690; 84484; 85025; 85610; 85730; 93005; 96360; 99284; A9270; J7030

== ENCOUNTER 2021-10-16 12:54 | Emergency (ER) | payer MEDICARE, SELFPAY ==
[2021-10-16] VITALS (14 sets, daily range): BP systolic 114–131; BP diastolic 74–96; PULSE 54–90; RESP 13–23; TEMP 36.2–36.6; O2SAT 92–100
--- NOTE | ~2021-10-16 | CT_ITS ---
EXAMINATION: CT thoracic lumbar wo con DATE: 10/16/2021 15:01 INDICATION: Back pain. Fall. TECHNIQUE: Computed tomography (CT) of the thoracic and lumbar spine was performed without intravenou s contrast. Automated exposure control and iterative reconstruction technique were employed. The dose -length product was 1927.53 mGy-cm. COMPARISON: None FINDINGS: CT THORACIC SPINE: There is 8 degrees levocurvature of upper thoracic spine. There is mild chronic an terior wedging of T8-T12 vertebral bodies. There is decreased disc height at all levels, severe at T1 -T2, T2-T3, T3-T4, T6-T7, and T7-T8. There is multilevel facet joint osteoarthritis. There is multile vira mild neural foraminal stenosis bilaterally. On the right, there is moderate to severe neural fora radha stenosis at T1-T2, T2-T3, T3-T4, T6-T7, and T10-T11. On the left, there is moderate to severe n eural foraminal stenosis at T1-T2, T2-T3, T3-T4, and T10-T11. There is mild central canal stenosis at most levels. CT LUMBAR SPINE: There is 13 degrees levoscoliosis of lumbar spine. There are changes of anterior fus ion procedure at L5-S1 with interbody devices. There is severely decreased disc height from L1-L2 thr ough L3-L4 with interbody fusion at L2-L3. There is mildly decreased disc height at L4-L5. Partially visualized are cysts in the left kidney. The following disc levels are specifically discussed: L1-L2: The disc is bulging. There is severe bilateral facet joint osteoarthritis. There is moderate b ilateral neural foraminal stenosis. There is moderate central canal stenosis. L2-L3: There is ankylosis of the facet joints with severe hypertrophy. There is moderate right and mi ld left neural foraminal stenosis. There is mild central canal stenosis. L3-L4: The disc is bulging. There is severe bilateral facet joint osteoarthritis. There is moderate b ilateral neural foraminal stenosis. There is moderate central canal stenosis. L4-L5: The disc is bulging. There is severe bilateral facet joint osteoarthritis. There is moderate b ilateral neural foraminal stenosis. There is mild central canal stenosis. L5-S1: There is severe bilateral facet joint osteoarthritis. There is moderate bilateral neural rj inal stenosis. There is mild central canal stenosis with posterior decompression. IMPRESSION: 1. No fracture. 2. Severe thoracic and lumbar spondylosis. 3. Scoliosis. Reviewed, dictated and finalized at location A.
--- NOTE | ~2021-10-16 | XR_ITS ---
EXAMINATION: XR chest 2V 10/16/2021 15:11 INDICATION: Status post fall. Right-sided chest pain. PROCEDURE: 2 view chest COMPARISON: 03/19/2021 FINDINGS: The lungs are clear. The cardiomediastinal silhouette is within normal limits. There are no pleural effusions. There is no pneumothorax suspected. 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 IMPRESSION: 1: NO ACUTE CARDIOPULMONARY DISEASE. Reviewed, dictated and finalized at location B.
--- NOTE | ~2021-10-16 | XR_ITS ---
EXAMINATION: XR ankle LT min 3V DATE: 10/16/2021 15:11 INDICATION: Left ankle pain. Fall. TECHNIQUE: 4 views of left ankle were obtained. COMPARISON: None. FINDINGS: Bone alignment is normal. No fracture. There is mild osteoarthritis of tibiotalar joint. Th ere is moderate to severe midfoot osteoarthritis. There are enthesophytes at the posterior and planta r aspects of calcaneal tuberosity. There is ankle soft tissue swelling. IMPRESSION: 1. Polyarticular osteoarthritis. Reviewed, dictated and finalized at location A.
--- NOTE | ~2021-10-16 | CT_ITS ---
EXAMINATION: CT brain wo con DATE: 10/16/2021 15:00 INDICATION: Head injury. TECHNIQUE: Computed tomography (CT) of the head was performed without intravenous contrast. The mA wa s adjusted according to patient size. Iterative reconstruction technique was employed. The dose-lengt h product was 681.00 mGy-cm. COMPARISON: None FINDINGS: There is no intracranial hemorrhage, acute infarction, or abnormal intracranial mass lesion . There are scattered areas of low attenuation in the cerebral white matter, which is within normal l imits for the patient's age. The ventricles are normal in size. There is an old blowout fracture of m edial wall of the left orbit. There is minimal mucosal thickening in the ethmoid sinuses. The mastoid air cells are normal. IMPRESSION: 1. Normal aging brain. Reviewed, dictated and finalized at location A. IMPRESSION: 1. Normal aging brain.
--- NOTE | ~2021-10-16 | CT_ITS ---
EXAMINATION: CT cervical spine wo con DATE: 10/16/2021 15:00 INDICATION: Neck pain. Fall. TECHNIQUE: Computed tomography (CT) of the cervical spine was performed without intravenous contrast. Automated exposure control and iterative reconstruction technique were employed. The dose-length pro duct was 511.97 mGy-cm. COMPARISON: None FINDINGS: There is 4 degrees dextrocurvature of cervical spine. There is 2 mm anterolisthesis of C4 o n C5, 2 mm retrolisthesis of C5 on C6, and 2 mm anterolisthesis of C7 on T1. There is mild chronic an terior wedging of T1 vertebral body. There is severely decreased disc height at C3-C4, C4-C5, C5-C6, and C6-C7 and mildly decreased disc height at C7-T1. Osseous central spinal canal is developmentally small. The following disc levels are specifically discussed: C2-C3: There is mild bilateral uncovertebral joint osteoarthritis. There is moderate right and severe left facet joint osteoarthritis. There is mild left neural foraminal stenosis. There is no central c anal stenosis. C3-C4: There is severe bilateral uncovertebral joint osteoarthritis. There is severe bilateral facet joint osteoarthritis. There is mild right and moderate left neural foraminal stenosis. There is mild central canal stenosis. C4-C5: There is severe bilateral uncovertebral joint osteoarthritis. There is severe bilateral facet joint osteoarthritis. There is mild right and moderate left neural foraminal stenosis. There is moder ate central canal stenosis. C5-C6: There is severe bilateral uncovertebral joint osteoarthritis. There is severe right and modera te left facet joint osteoarthritis. There is mild bilateral neural foraminal stenosis. There is moder ate central canal stenosis. C6-C7: There is severe bilateral uncovertebral joint osteoarthritis. There is moderate right and pura re left facet joint osteoarthritis. There is moderate bilateral neural foraminal stenosis. There is m ild central canal stenosis. C7-T1: There is moderate left uncovertebral joint osteoarthritis. There is severe bilateral facet diana nt osteoarthritis. There is mild bilateral neural foraminal stenosis. There is no central canal steno sis. IMPRESSION: 1. No fracture. 2. Severe cervical spondylosis. Reviewed, dictated and finalized at location A.
--- NOTE | ~2021-10-16 | XR_ITS ---
XR pelvis 1-2V 10/16/2021 15:12 Indication: Status post fall from 5 feet. Right hip pain. Procedure: AP pelvis Comparison: No prior studies for comparison. Findings: There is severe bilateral osteoarthritis of the hips. Pelvic rings are intact. No acute fra cture or traumatic malalignment. No foreign bodies. Sacral foramen are symmetric. Impression: 1: No acute fracture. 2: Severe osteoarthritis of the hips. Reviewed, dictated and finalized at location B. Impression: 1: No acute fracture. 2: Severe osteoarthritis of the hips.
--- NOTE | 2021-10-16 14:44 | ED.FALL ---
HPI - Fall General Chief Complaint: Fall Stated Complaint: neck pain, fall Time Seen by Provider: 10/16/21 14:08 Source: patient Mode of arrival: ambulatory Limitations: no limitations History of Present Illness HPI Narrative: This is a 66-year-old male that presents to the emergency department for a fall with head injury 6 days ago. Reports he fell about 5 feet off of a porch. He did hit his head. He thinks he might of lost consciousness. He is on a blood thinner. He has had continued headaches and neck pain since which prompted him to be seen. He has not been evaluated since the fall yet. He also reports back pain and left ankle pain. Denies vision changes, chest pain, abdominal pain, vomiting, numbness, or weakness. Related Data Home Medications Medication Instructions Recorded Confirmed gabapentin 300 mg capsule 300 mg PO BID 04/28/19 04/28/19 oxycodone 10 mg tablet 10 mg PO QID PRN Back Pain 04/28/19 06/27/20 amlodipine 10 mg tablet 10 mg PO DAILY 06/27/20 06/27/20 benazepril 10 mg tablet 10 mg PO DAILY 06/27/20 06/27/20 bupropion HCl 150 mg 24 hr tablet, 150 mg PO QAM 06/27/20 06/27/20 extended release duloxetine 60 mg capsule,delayed 60 mg PO DAILY 06/27/20 06/27/20 release Allergies Allergy/AdvReac Type Severity Reaction Status Date / Time No Known Allergies Allergy Verified 10/16/21 14:03 Review of Systems Review of Systems: CONSTITUTIONAL: Denies fever EYES: Denies visual changes CARDIOVASCULAR: Denies chest pain GASTROINTESTINAL: Denies abdominal pain, nausea, vomiting MUSCULOSKELETAL: Reports back pain, joint pain, and myalgia. NEUROLOGIC: Reports headache. Denies numbness, or weakness. All systems reviewed & are unremarkable except as noted in HPI and below [facility] Past Medical History Medical History (Updated 10/16/21 @ 15:36 by Falguni Rojas PA-C) Atrial fibrillation with rapid ventricular response Hypertension MRSA (methicillin resistant staph aureus) culture positive Surgical History Surgical History H/O hand surgery Previous back surgery Social History Social History Smoking status: Never smoker Alcohol intake: never Substance use: current Substance use type: marijuana Gender identity (if verbalized by the patient): Male Spiritual care concerns: No Exam Narrative: GENERAL: Well-appearing, well-nourished, and in no acute distress. HEAD: Normocephalic, atraumatic. EYES: PERRLA and EOMI. ENT: Nares clear, no rhinorrhea or epistaxis. Mucous membranes moist. Oropharynx without tonsillar hypertrophy exudate or other lesions. Bilateral TMs pearly palumbo non-bulging NECK: Supple. No adenopathy or masses. C-collar in place CHEST: Clear to auscultation. No respiratory distress. No wheezes rales or rhonchi HEART: Regular rate and rhythm. No murmur heard. Normal peripheral pulses. ABDOMEN: Soft, nontender, nondistended, normal active bowel sounds. EXTREMITIES: Normal range of motion. No edema or obvious deformity SKIN: Warm, dry, no rash. NEURO: No focal deficits. Alert and oriented x3. Cranial nerves II through XII grossly intact PSYCH: Normal mood and affect Course Vital Signs Vital signs: Vital Signs Temperature 97.2 F L 10/16/21 13:05 Pulse Rate 90 10/16/21 13:05 Respiratory Rate 16 10/16/21 13:05 Blood Pressure 130/93 H 10/16/21 13:05 Pulse Oximetry 92 10/16/21 13:05 Oxygen Delivery Room Air 10/16/21 13:05 Temperature 97.2 F L 10/16/21 13:05 Pulse Rate 67 10/16/21 16:10 Respiratory Rate 18 10/16/21 16:10 Blood Pressure 131/96 H 10/16/21 15:50 Pulse Oximetry 100 10/16/21 16:10 Oxygen Delivery Room Air 10/16/21 13:05 MDM - Fall MDM Narrative Medical decision making narrative: Patient presents to the ER after a fall 6 days ago with head injury and neck pain. Patient is neurologically intact. CT scan of
--- NOTE | 2021-10-16 14:59 | PC.NURSE ---
Pt off floor to radiology.
[2021-10-16] MEDS: ACETAMINOPHEN 500 MG TABLET 1000 MG PO (15:52)
== END 2021-10-16 16:10 | disposition home or self-care (01) ==
PROVIDERS: Emergency Provider General Practice
DX: S09.90XA Unspecified injury of head, initial encounter (principal); I48.91 Unspecified atrial fibrillation; I10 Essential (primary) hypertension; Z86.14 Personal history of Methicillin resistant Staphylococcus aureus infection; M47.816 Spondylosis without myelopathy or radiculopathy, lumbar region; M47.814 Spondylosis without myelopathy or radiculopathy, thoracic region; M47.812 Spondylosis without myelopathy or radiculopathy, cervical region; M19.072 Primary osteoarthritis, left ankle and foot; Z79.01 Long term (current) use of anticoagulants; W13.8XXA Fall from, out of or through other building or structure, initial encounter
CPT/HCPCS: 70450; 71046; 72125; 72128; 72131; 72170; 73610; 99284; A9270; L0140

== ENCOUNTER 2021-12-14 12:02 | Emergency (ER) | payer MEDICARE, SELFPAY ==
--- NOTE | ~2021-12-14 | XR_ITS ---
EXAMINATION: XR wrist RT min 3V DATE: 12/14/2021 12:36 INDICATION: Right wrist pain. TECHNIQUE: 3 views of right wrist were obtained. COMPARISON: None. FINDINGS: Bone alignment is normal. There is an old healed fracture of ulnar diaphysis with plate and screw fixation. There is arthrodesis of lunate and triquetrum with single screw. There is severe ost eoarthritis of radiolunate joint and moderate osteoarthritis of radioscaphoid joint. There is remodel ing of distal ulna, consistent with ulnolunate impaction syndrome. There is moderate osteoarthritis o f first carpometacarpal joint. There is mild to moderate osteoarthritis of many of the metacarpophala ngeal joints and interphalangeal joints. IMPRESSION: 1. Polyarticular osteoarthritis. Reviewed, dictated and finalized at location A.
[2021-12-14 12:05] VITALS: PULSE 81; RESP 16; TEMP 36.4; O2SAT 93
--- NOTE | 2021-12-14 12:14 | ED.UPPEXIN ---
HPI - Extremity Injury (Upper) General Chief Complaint: Extremity Injury, Upper Stated Complaint: RUE injury Time Seen by Provider: 12/14/21 12:13 Source: patient and family Mode of arrival: ambulatory Limitations: no limitations History of Present Illness HPI narrative: 66 years old white male with With pain, swelling of the right wrist and hand 3 days ago. History of gout. Patient denies any injury or trauma. Patient also denies any fever, chills, nausea, vomiting. History of hypertension, atrial fibrillation on Xarelto Related Data Home Medications Medication Instructions Recorded Confirmed gabapentin 300 mg capsule 300 mg PO BID 04/28/19 04/28/19 oxycodone 10 mg tablet 10 mg PO QID PRN Back Pain 04/28/19 06/27/20 amlodipine 10 mg tablet 10 mg PO DAILY 06/27/20 06/27/20 benazepril 10 mg tablet 10 mg PO DAILY 06/27/20 06/27/20 bupropion HCl 150 mg 24 hr tablet, 150 mg PO QAM 06/27/20 06/27/20 extended release duloxetine 60 mg capsule,delayed 60 mg PO DAILY 06/27/20 06/27/20 release Allergies Allergy/AdvReac Type Severity Reaction Status Date / Time No Known Allergies Allergy Verified 12/14/21 12:10 Review of Systems Review of Systems: All systems reviewed & are unremarkable except as noted in HPI and below PMFSH Past Medical History Medical History Atrial fibrillation with rapid ventricular response Hypertension MRSA (methicillin resistant staph aureus) culture positive Surgical History Surgical History H/O hand surgery Previous back surgery Social History Social History Smoking status: Never smoker Alcohol intake: never Substance use: current Substance use type: marijuana Gender identity (if verbalized by the patient): Male Spiritual care concerns: No Exam Narrative: General appearance: Well-developed, well-nourished Skin: Normal color Head: Normocephalic, nontraumatic Eyes: Clear conjunctiva ENT: Oropharynx normal, ears normal, nose normal Neck: Supple, nontender Chest and respiratory: Airway patent, no respiratory distress, no accessory muscle use Heart: Regular rate/rhythm Abdomen: Soft, nontender, no organomegaly, quiet bowel sounds Vascular: Normal peripheral pulses, normal capillary refill. Musculoskeletal: Right wrist and hand showed diffuse swelling, severe tenderness, warm to touch, slightly erythematous. With severe limited range of motion of the wrist Neurologic: Alert and oriented ?3, CARD RUNNER is normal as tested, no gross motor deficit Course Course Emergency Course: Acute gouty arthritis is my concern. Vital Signs Vital signs: Vital Signs Temperature 36.4 C 12/14/21 12:05 Pulse Rate 81 12/14/21 12:05 Respiratory Rate 16 12/14/21 12:05 Pulse Oximetry 93 12/14/21 12:05 Temperature 36.4 C 12/14/21 12:05 Pulse Rate 81 12/14/21 12:05 Respiratory Rate 16 12/14/21 12:05 Pulse Oximetry 93 12/14/21 12:05 MDM - Extremity Injury (Upper) Differential Diagnosis Differential diagnosis: Likely sprain and strain of wrist, fracture of wrist and other (Gout) Imaging Data Radiologist's impression: Impressions Wrist X-Ray 12/14/21 12:40 IMPRESSION: 1. Polyarticular osteoarthritis. Critical Care Time Critical Care Time Critical Care Time: No Discharge Plan Discharge Clinical Impression: Acute gouty arthritis Patient Disposition: Home, Self-Care Condition: Improved Instructions: Antibiotic Form, Gout (ED) Additional Instructions: Return if symptoms are worsening ,
[2021-12-14 12:54] LABS: Basophils Percent Auto 0.3 % (0.2-1.2); Eosinophils Absolute Auto 0.1 K/mm3 (0-0.3); Eosinophils Percent Auto 0.4 % (0-4.4); Hematocrit 50.3 % (42.0-52.0); Hemoglobin 16.5 g/dL (14.0-18.0); Immature Granulocyte Percent A 0.7 % (0-0.5); Lymphocytes Absolute Auto 2.65 K/mm3 (0.9-3.2); Mean Corpuscular HGB Conc 32.8 g/dl (32-36); Mean Corpuscular Hemoglobin 28.1 pg (26-34); Mean Corpuscular Volume 85.7 fl (80-100); Mean Platelet Volume 9.4 fl (7.4-10.4); Monocytes Absolute Auto 1.6 K/mm3 (0.1-0.6); Monocytes Percent Auto 11.4 % (2.6-8.5); Neutrophils Absolute Auto 9.5 K/mm3 (1.3-6.7); Neutrophils Percent Auto 68.2 % (45.5-73.1); Platelet Count Result 350 k/mm3 (150-375); Red Blood Count 5.87 M/mm3 (4.6-6.20); Red Cell Distribution Width 14.8 % (11.5-14.5)
[2021-12-14 13:08] LABS: Anion Gap 14 mmol/L (8-16); Blood Urea Nitrogen 29 mg/dL (9-20); Calcium 9.7 mg/dL (8.4-10.2); Carbon Dioxide 27 mmol/L (22-30); Chloride 96 mmol/L (98-107); Estimated CRCL calculation 37 ml/min; Estimated Glomerular Filt Rate 35; Glucose 136 mg/dL (65-110); Potassium 3.8 mmol/L (3.4-5.0); Sodium 137 mmol/L (137-145); Uric Acid 8.9 mg/dL (3.5-8.5)
[2021-12-14] MEDS: INDOMETHACIN 25 MG CAPSULE 50 MG PO (13:15)
[2021-12-14] MEDS: COLCHICINE 0.6 MG TABLET 1.2 MG PO (13:15)
[2021-12-14 13:46] LABS: Erythrocyte Sedimentation Rate 7 mm/hr (0-20)
== END 2021-12-14 14:06 | disposition home or self-care (01) ==
PROVIDERS: Emergency Provider Emergency Medicine
DX: M10.9 Gout, unspecified (principal); M25.531 Pain in right wrist; I10 Essential (primary) hypertension; I48.91 Unspecified atrial fibrillation; Z79.01 Long term (current) use of anticoagulants; Z22.322 Carrier or suspected carrier of Methicillin resistant Staphylococcus aureus; F12.90 Cannabis use, unspecified, uncomplicated
CPT/HCPCS: 36415; 73110; 80048; 84550; 85025; 85652; 99283; A4565; A9270

== ENCOUNTER 2024-06-29 15:52 | Emergency (ER) | payer MEDICARE, SELFPAY ==
--- NOTE | ~2024-06-29 | XR_ITS ---
EXAMINATION: XR hand RT min 3V DATE: 06/29/2024 16:25 INDICATION: Right hand swelling. Possible gout. TECHNIQUE: Posteroanterior, oblique and lateral views of the right hand were obtained. COMPARISON: 12/14/2021 FINDINGS: Again seen is plate and screw fixation of an old healed fracture of the distal right ulnar diaphysis. There is a lunotriquetral arthrodesis with screw fixation. No acute fracture. Polyarticular osteoart hritis, severe at the wrist and first carpal metacarpal joints, moderate severity at the distal radio ulnar, midcarpal, triscaphe and multiple predominantly distal interphalangeal joints and at the third and fourth metacarpophalangeal joints and mild at the remaining joints throughout the right hand. Th ere are juxta articular erosions at the ulnar side of the distal radius, at the palmar base of the fi rst proximal phalanx and at the triquetrum which could be consistent with provided history of gout. T here is diffuse soft tissue swelling about the right hand, wrist and distal forearm. IMPRESSION: 1. Postoperative changes as detailed above. No acute osseous adenopathy. 2. 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 3. A few chronic appearing juxta articular erosions with thin sclerotic margins which could be seen w ith gout. Reviewed, dictated and finalized at location B. IMPRESSION: 1. Postoperative changes as detailed above. No acute osseous adenopathy. 2. 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 3. A few chronic appearing juxta articular erosions with thin sclerotic margins which could be seen with gout.
[2024-06-29 15:55] VITALS: BP 113/92; PULSE 91; RESP 18; TEMP 36.4; O2SAT 99
--- NOTE | 2024-06-29 16:04 | ECG_ITS ---
Test Date: 2024-06-29 16:39:45 Measurements Intervals [place] Rate: 67 P: 0 [place]: 0 QRS: -28 QRSD: 93 T: 12 QT: 371 QTc: 393 Interpretive Statements ATRIAL FIBRILLATION ANTEROSEPTAL INFARCT, AGE INDETERMINATE INFERIOR INFARCT, AGE INDETERMINATE BASELINE ARTIFACT- I, II, III, AVR, AVL, AVF, V1-V6 ABNORMAL ECG No previous ECG available for comparison Electronically Signed On 06-29-2024 17:45:36 CDT by Kar Hall D.O.
--- NOTE | 2024-06-29 16:05 | ED_ITS ---
HPI - Extremity Problem General Chief complaint: Extremity Problem,Nontraumatic <Cee Pope APRN - Last Filed: 06/29/24 16:08> Stated complaint: I have gout in my right hand bad. <Cee Pope APRN - Last Filed: 06/29/24 16:08> Time Seen by Provider: 06/29/24 16:00 <Cee Pope APRN - Last Filed: 06/29/24 16:08> Focused HPI: Patient is a 68-year-old male who presents to the ER with complaints of right hand pain and swelling. He reports he 1st noticed the symptoms approximately 1 week ago. Patient denies any injury to the area. He reports he has had similar symptoms in the past and I came here and they gave me 3 little pills and my swelling went down. Patient endorses mild decreased range of motion due to the swelling. Denies any recent fevers, shortness of breath, chest pain, or elbow pain. GENERAL: Well-appearing, well-nourished, and in no acute distress. HEAD: Normocephalic, atraumatic. CHEST: Clear to auscultation. ?No respiratory distress. HEART: Regular rate and rhythm.? NEURO: ?Alert and oriented x3. Patient screened in triage and initial orders placed.? ?Additional care and disposition to be based upon?diagnostic testing and treatment. <Cee Pope APRN - Last Filed: 06/29/24 16:08> History of Present Illness HPI Narrative: Agree with the HPI above and would also like to add that patient is a 68-year-old male with poor health literacy. He states that he has been having swelling in his right hand for several days. Similar to his previous flare-up which was diagnosed as gout. <Asher Prasad MD - Last Filed: 06/29/24 20:58> Related Data Home medications: Home Medications ?Medication ?Instructions ?Recorded ?Confirmed ?Last Taken ?Type oxycodone 10 mg tablet 10 mg PO QID PRN Back Pain 04/28/19 06/27/20 04/27/19 History amlodipine 10 mg tablet 10 mg PO DAILY 06/27/20 06/27/20 Unknown History benazepril 10 mg tablet 10 mg PO DAILY 06/27/20 06/27/20 Unknown History bupropion HCl 150 mg 24 hr tablet, 150 mg PO QAM 06/27/20 06/27/20 Unknown History extended release duloxetine 60 mg capsule,delayed 60 mg PO DAILY 06/27/20 06/27/20 Unknown History release <Cee Pope APRN - Last Filed: 06/29/24 16:08> Allergies/Adverse reactions: Allergies Allergy/AdvReac Type Severity Reaction Status Date / Time No Known Allergies Allergy Verified 03/04/22 12:19 <Cee Pope APRN - Last Filed: 06/29/24 16:08> Review of Systems 2 Review of Systems: As reviewed above in HPI <Asher Prasad MD - Last Filed: 06/29/24 20:58> PMFSH Past Medical History Medical History: Medical History MRSA (methicillin resistant staph aureus) culture positive Atrial fibrillation with rapid ventricular response Hypertension <Cee Pope APRN - Last Filed: 06/29/24 16:08> Surgical History Surgical History: Surgical History Previous back surgery H/O hand surgery <Cee Pope APRN - Last Filed: 06/29/24 16:08> Social History Social History: Social History Smoking status: Never smoker Alcohol intake: never Substance use: current Substance use type: marijuana Gender identity (if verbalized by the patient): Male Spiritual care concerns: No <Cee Pope APRN - Last Filed: 06/29/24 16:08> Exam 2 Narrative: GENERAL: [Well-appearing, well-nourished, and in no acute distress.] HEAD: [Normocephalic, atraumatic.] EYES: [PERRLA and EOMI.] ENT: Nares clear, no rhinorrhea or epistaxis. Mucous membranes moist. NECK: Supple. CHEST: [Clear to auscultation. No respiratory distress.] HEART: [Regular rate and rhythm]. No murmur heard. [Normal peripheral pulses.] ABDOMEN: [Soft, nondistended], [nontender], [No rigidity or guarding] EXTREMITIES: Normal range of motion. Right hands has some dorsal swelling at the MCP and PIP joints. No overlying skin changes, no signs of cellulitis. Full flexion and extension at the MCP PIP and D IP joints. SKIN: Warm, dry, no rash. NEURO: [No focal deficits]. Alert and oriented [x3.] PSYCH: [Normal mood and affect.] <Asher Prasad MD - Last Filed: 06/29/24 20:58> Course Vital Signs Vital signs: Vital Signs Temperature 36.4 C L 06/29/24 15:55 Pulse Rate 91 06/29/24 15:55 Respiratory Rate 18 06/29/24 15:55 Blood Pressure 113/92 H 06/29/24 15:55 Pulse Oximetry 99 06/29/24 15:55 Temperature 36.4 C L 06/29/24 15:55 Pulse Rate 91 06/29/24 15:55 Respiratory Rate 18 06/29/24 15:55 Blood Pressure 113/92 H 06/29/24 15:55 Pulse Oximetry 99 06/29/24 15:55 <Cee Pope APRN - Last Filed: 06/29/24 16:08> Vital Signs Temperature 36.4 C L 06/29/24 15:55 Pulse Rate 91 06/29/24 15:55 Respiratory Rate 18 06/29/24 15:55 Blood Pressure 113/92 H 06/29/24 15:55 Pulse Oximetry 99 06/29/24 15:55 Temperature 36.4 C L 06/29/24 15:55 Pulse Rate 91 06/29/24 15:55 Respiratory Rate 18 06/29/24 15:55 Blood Pressure 113/92 H 06/29/24 15:55 Pulse Oximetry 99 06/29/24 15:55 <Asher Prasad MD - Last Filed: 06/29/24 20:58> MDM - Extremity (Nontraumatic) MDM Narrative Medical decision making narrative: 68-year-old male with history of CKD, atrial fibrillation on Xarelto. Patient presents to the emergency department with gout flare in his right hand. He states he has been having some swelling and pain in his right hand for several days. Very similar to last time he had gout that was treated with some medications. His has a history of kidney disease but does not see his doctor regularly. Poor health literacy after my discussions with the patient. He has signs and symptoms consistent with a gout flare. X-rays were obtained as well as inflammatory markers. He was given Solu-Medrol and oxycodone for pain control. Will hold off on NSAIDs and colchicine given his kidney disease that I do not want to exacerbated with anti-inflammatory other than steroids. Workup shows no leukocytosis, anemia without any baseline, likely secondary to chronic kidney disease. Normal electrolytes, BUN and creatinine are worse than his previous levels indicative of progression of CAD CKD. GFR 29. CRP elevated at 13.1 consistent with inflammatory process. Hand x-ray shows postoperative changes from previous remote procedure as well as polyarticular arthritis and sclerotic changes consistent with gout. Patient was improved with pain control medications here and safely discharged home. He was given a steroid course for next several days and encouraged to call his primary care provider for additional pain medications as he has chronic oxycodone prescriptions from them. <Asher Prasad MD - Last Filed: 06/29/24 20:58> Lab Data Result diagrams: 06/29/24 16:49 06/29/24 16:49 <Cee Pope APRN - Last Filed: 06/29/24 16:08> Labs: Lab Results 06/29/24 Range/Units 16:49 WBC 9.7 (4.5-10.0) K/mm3 RBC 5.13 (4.6-6.20) M/mm3 Hgb 10.0 L D (14.0-18.0) g/dL Hct 35.5 L (42.0-52.0) % MCV 69.2 L (80-100) fl MCH 19.5 L (26-34) pg MCHC 28.2 L (32-36) g/dl RDW 22.2 H (11.5-14.5) % Plt Count 324 (150-375) k/mm3 MPV 9.2 (7.4-10.4) fl Immature Gran % (Auto) 0.3 (0-0.5) % Neut % (Auto) 61.5 (45.5-73.1) % Lymph % (Auto) 23.9 (18.3-44.2) % [place] % (Auto) 12.7 H (2.6-8.5) % Eos % (Auto) 1.1 (0-4.4) % Baso % (Auto) 0.5 (0.2-1.2) % Lymph # (Auto) 2.31 (0.9-3.2) K/mm3 [place] # (Auto) 1.2 H (0.1-0.6) K/mm3 Eos # (Auto) 0.1 (0-0.3) K/mm3 Baso # (Auto) 0.1 (0.0-0.1) K/mm3 Abs Immat Gran (auto) 0.03 (0.00-0.031) K/mm3 Absolute Neuts (auto) 5.9 (1.3-6.7) K/mm3 Absolute Nucleated RBC 0.000 (0.0-0.012) K/mm3 Band Neutrophils % Not Reportable Nucleated RBC % 0.0 (0.0-0.2) % Platelet Estimate Adequate (Adequate) Polychromasia 1+ Hypochromasia 2+ Anisocytosis 2+ Microcytosis 1+ (NORMAL) Ovalocytes 1+ Schistocytes None seen PT 26.0 H (11.1-14.7) Seconds INR 2.3 APTT 56.5 H (22.3-36.8) Seconds Sodium 135 L (137-145) mmol/L Potassium 3.8 (3.4-5.0) mmol/L Chloride 100 (98-107) mmol/L Carbon Dioxide 26 (22-30) mmol/L Anion Gap 9 (4-12) mmol/L BUN 30 H (9-20) mg/dL Creatinine 2.27 H (0.7-1.3) mg/dL Estim Creat Clear Calc Not Reportable Estimated GFR 29 L (59 - ) Glucose 121 H (65-110) mg/dL Lactic Acid 2.0 (0.7-2.0) mmol/L Calcium 8.7 (8.4-10.2) mg/dL Total Bilirubin 0.5 (0.2-1.3) mg/dL AST 19 (17-59) U/L ALT 14 (6-50) U/L Alkaline Phosphatase 94 (38-126) U/L Troponin I < 0.012 (0.000-0.034) ng/mL C-Reactive Protein 13.1 H (<1.0) mg/dL Total Protein 7.0 (6.3-8.2) g/dL Albumin 3.8 (3.5-5.1) g/dL <Cee Pope, SHIFT SUPERVISOR RN - Last Filed: 06/29/24 16:08> Lab Results 06/29/24 Range/Units 16:49 WBC 9.7 (4.5-10.0) K/mm3 RBC 5.13 (4.6-6.20) M/mm3 Hgb 10.0 L D (14.0-18.0) g/dL Hct 35.5 L (42.0-52.0) % MCV 69.2 L (80-100) fl MCH 19.5 L (26-34) pg MCHC 28.2 L (32-36) g/dl RDW 22.2 H (11.5-14.5) % Plt Count 324 (150-375) k/mm3 MPV 9.2 (7.4-10.4) fl Immature Gran % (Auto) 0.3 (0-0.5) % Neut % (Auto) 61.5 (45.5-73.1) % Lymph % (Auto) 23.9 (18.3-44.2) % [place] % (Auto) 12.7 H (2.6-8.5) % Eos % (Auto) 1.1 (0-4.4) % Baso % (Auto) 0.5 (0.2-1.2) % Lymph # (Auto) 2.31 (0.9-3.2) K/mm3 [place] # (Auto) 1.2 H (0.1-0.6) K/mm3 Eos # (Auto) 0.1 (0-0.3) K/mm3 Baso # (Auto) 0.1 (0.0-0.1) K/mm3 Abs Immat Gran (auto) 0.03 (0.00-0.031) K/mm3 Absolute Neuts (auto) 5.9 (1.3-6.7) K/mm3 Absolute Nucleated RBC 0.000 (0.0-0.012) K/mm3 Band Neutrophils % Not Reportable Nucleated RBC % 0.0 (0.0-0.2) % Platelet Estimate Adequate (Adequate) Polychromasia 1+ Hypochromasia 2+ Anisocytosis 2+ Microcytosis 1+ (NORMAL) Ovalocytes 1+ Schistocytes None seen PT 26.0 H (11.1-14.7) Seconds INR 2.3 APTT 56.5 H (22.3-36.8) Seconds Sodium 135 L (137-145) mmol/L Potassium 3.8 (3.4-5.0) mmol/L Chloride 100 (98-107) mmol/L Carbon Dioxide 26 (22-30) mmol/L Anion Gap 9 (4-12) mmol/L BUN 30 H (9-20) mg/dL Creatinine 2.27 H (0.7-1.3) mg/dL Estim Creat Clear Calc Not Reportable Estimated GFR 29 L (59 - ) Glucose 121 H (65-110) mg/dL Lactic Acid 2.0 (0.7-2.0) mmol/L Calcium 8.7 (8.4-10.2) mg/dL Total Bilirubin 0.5 (0.2-1.3) mg/dL AST 19 (17-59) U/L ALT 14 (6-50) U/L Alkaline Phosphatase 94 (38-126) U/L Troponin I < 0.012 (0.000-0.034) ng/mL C-Reactive Protein 13.1 H (<1.0) mg/dL Total Protein 7.0 (6.3-8.2) g/dL Albumin 3.8 (3.5-5.1) g/dL <Asher Prasad MD - Last Filed: 06/29/24 20:58> Discharge Plan Discharge Clinical Impression: Gouty arthritis, CKD (chronic kidney disease), Hand pain <Cee Pope APRN - Last Filed: 06/29/24 16:08> Patient Disposition: Home <Cee Pope APRN - Last Filed: 06/29/24 16:08> Condition: Stable <Cee Pope APRN - Last Filed: 06/29/24 16:08> Instructions: Antibiotic Form, Low Purine Diet (ED), Gout (ED) <Cee Pope APRN - Last Filed: 06/29/24 16:08> Additional Instructions: Signs and symptoms are consistent with gout. Take the prednisone for the next 5 days. Follow up with your primary care provider for additional recommendations and treatment. Do not take any NSAIDs or other medications such as ibuprofen, Aleve, Naprosyn as you have bad kidney function and this can worsen it. <Cee Pope APRN - Last Filed: 06/29/24 16:08> Patient Language: Danish <Cee Pope APRN - Last Filed: 06/29/24 16:08> Prescriptions: New prednisone 50 mg tablet 50 mg PO DAILY 5 Days Qty: 5 0RF No Action duloxetine 60 mg capsule,delayed release(DR/EC) 60 mg PO DAILY bupropion HCl 150 mg tablet extended release 24 hr 150 mg PO QAM benazepril 10 mg tablet 10 mg PO DAILY amlodipine 10 mg tablet 10 mg PO DAILY oxycodone 10 mg tablet 10 mg PO QID PRN (Reason: Back Pain) metoprolol succinate 50 mg Tablet Extended Release 24 Hr 50 mg PO QAM Qty: 30 0RF Xarelto 20 mg Tablet 20 mg PO DAILY@1700 Qty: 30 0RF <Cee Pope APRN - Last Filed: 06/29/24 16:08> Follow-up/Referrals: UNKNOWN,DOCTOR [Primary Care Provider] - <Cee Pope APRN - Last Filed: 06/29/24 16:08> Time of Disposition: 20:58 <Cee Pope APRN - Last Filed: 06/29/24 16:08> 20:58 <Asher Prasad MD - Last Filed: 06/29/24 20:58>
--- OUTSIDE RECORDS SUMMARY | 2024-06-29 16:30 | XMS_ITS | Clinical Summary ---
Author Organization [facility] [place] [address] [facility] [address] [place] [address] Care Team Providers Care Web Engineer Name Role Phone No, Physician Primary Care Provider [phone] Allergies No known active allergies Medications amLODIPine (NORVASC) 10 mg tablet Take 1 tablet (10 mg total) by mouth 8 Active Xarelto 20 mg tablet Take 1 tablet (20 mg total) by mouth daily 0 Active oxyCODONE (ROXICODONE) 10 mg tablet TAKE 1 TABLET BY MOUTH 4 TIMES A DAY NEEDED PAIN 0 Active benazepriL (LOTENSIN) 20 mg tablet Take 0.5 tablets (10 mg total) by mouth daily 8 Active buPROPion XL (WELLBUTRIN XL) 150 mg 24 hr tablet Take 1 tablet (150 mg total) by mouth contracts representative before breakfast [address] (CYMBALTA) 60 mg capsule Take 1 capsule (60 mg total) by mouth daily 8 Active metoprolol XL (TOPROL-XL) 100 mg 24 hr tabletIndications :Atrial fibrillation (HCC) TAKE 1 TABLET BY MOUTH EVERY DAY 90 tablet 1 3 Active tamsulosin (FLOMAX) 0.4 mg extended release capsule 1 capsule (0.4 mg total) Active Active Problems Problem Noted Date Diagnosed Date Paroxysmal atrial fibrillation 07/12/2020 Encounters Date Type Department Care Team Description 04/29/2024 Telephone [facility] Cardiology [address] [facility] [address] [place] [address] Chance Williamson MD cardiac clearance from Last 3 Months Surgical History Surgery Date Site/Laterality Comments HAND SURGERY BACK SURGERY Medical History Medical History Date Comments Atrial fibrillation (HCC) 04/28/2019 Hypertension Family History Medical History Relation Name Comments No Known Problems Other Relation Name Status Comments Other Social History Tobacco Use Types Packs/Day Years Used Date Smoking Tobacco: Former Smokeless Tobacco: Never Alcohol Use Standard Drinks/Week Comments Not Currently 0 (1 standard drink = 0.6 oz pur e alcohol) Sex and Gender Information Value Date Recorded Sex Assigned at Not on file Legal Sex Male 2:17 PM FACTORY SUPERINTENDENT Gender Identity Not on file Sexual Orientation Not on file Obstetrics History Last Filed Vital Signs Vital Sign Reading Time Taken Comments Blood Pressure 128/88 02/09/2024 2:17 PM FACTORY SUPERINTENDENT Pulse 72 02/09/2024 2:17 PM FACTORY SUPERINTENDENT Temperature - - Respiratory Rate - - Oxygen Saturation 99% 02/09/2024 2:17 PM FACTORY SUPERINTENDENT Inhaled Oxygen Concentration - - Weight 90.3 kg (199 lb) 02/09/2024 2:17 PM FACTORY SUPERINTENDENT Height 175.3 cm (5' 9 ) 02/09/2024 2:17 PM FACTORY SUPERINTENDENT Body Mass Index 29.39 02/09/2024 2:17 PM FACTORY SUPERINTENDENT Plan of Treatment Health Maintenance Due Date Last Done Comments Colon Cancer Screening-Colonoscopy 1955 Depression Screening 1955 Fall Risk Assessment 1955 Hepatitis C Screening 1955 Hepatitis B Screening 08/19/1971 Zoster Vaccine (2 of 3) 07/15/2011 05/20/2011 Abdominal Aortic Aneurysm (A AA) Screen 2018 Well Visit 65+ 2018 Pneumococcal vaccine 65+ (2 of 2 - PCV) 07/03/2020 07/04/2019 Influenza Vaccine (#1) 2023 8, 03/26/2017, 03/23/2017, Additional history exists DTaP/Tdap/Td Vaccine (3 - Td or Tdap) 12/16/2025 12/17/2015, 10/04/2010 Insurance MEDICARE MEDICARE Care Teams Web Engineer Relationship Specialty Start Date End Date No, Physician PCP - General 02/09/24 Dr. Chance Paulson Referring Physician Single Corner Cutter 02/09/24
--- OUTSIDE RECORDS SUMMARY | 2024-06-29 16:30 | XMS_ITS | Referral Summary ---
Author Organization [facility] [address] [facility] [address] [place] [address] Care Team Providers Care Scheduler Conveyor Name Role Phone No, Physician Primary Care Provider [phone] Encounters Date Type Department Care Team Description 04/29/2024 Telephone [facility] Cardiology [address] [place] [address] Chance Williamson MD cardiac clearance from Last 3 Months Allergies No known active allergies Medications amLODIPine [...] 1 tablet (150 mg total) by mouth shuttle car operator before breakfast [address] (CYMBALTA) [...] Date Diagnosed Date Paroxysmal atrial fibrillation 07/12/2020 Social History Tobacco Use Types Packs/Day Years Used Date Smoking Tobacco: Former Smokeless Tobacco: Never Alcohol Use Standard Drinks/Week Comments Not Currently 0 (1 standard drink = 0.6 oz pur e alcohol) Sex and Gender Information Value Date Recorded Sex Assigned at Not on file Legal Sex Male 2:17 PM BARREL CAP SETTER Gender Identity Not on file Sexual Orientation Not on file Last Filed Vital Signs Vital Sign Reading Time Taken Comments Blood Pressure 128/88 02/09/2024 2:17 PM BARREL CAP SETTER Pulse 72 02/09/2024 2:17 PM BARREL CAP SETTER Temperature - - Respiratory Rate - - Oxygen Saturation 99% 02/09/2024 2:17 PM BARREL CAP SETTER Inhaled Oxygen Concentration - - Weight 90.3 kg (199 lb) 02/09/2024 2:17 PM BARREL CAP SETTER Height 175.3 cm (5' 9 ) 02/09/2024 2:17 PM BARREL CAP SETTER Body Mass Index 29.39 02/09/2024 2:17 PM BARREL CAP SETTER Plan of Treatment Not on file Insurance MEDICARE MEDICARE Care Teams Scheduler Conveyor Relationship Specialty Start Date End Date No, Physician PCP - General 02/09/24 Dr. Chance Paulson Referring Physician Salvage Cutter 02/09/24
[2024-06-29 16:59] LABS: Basophils Absolute Auto 0.1 K/mm3 (0.0-0.1); Basophils Percent Auto 0.5 % (0.2-1.2); Eosinophils Absolute Auto 0.1 K/mm3 (0-0.3); Eosinophils Percent Auto 1.1 % (0-4.4); Hematocrit 35.5 % (42.0-52.0); Immature Granulocyte Absolute 0.03 K/mm3 (0.00-0.031); Immature Granulocyte Percent A 0.3 % (0-0.5); Lymphocytes Absolute Auto 2.31 K/mm3 (0.9-3.2); Lymphocytes Percent Auto 23.9 % (18.3-44.2); Mean Corpuscular HGB Conc 28.2 g/dl (32-36); Mean Corpuscular Hemoglobin 19.5 pg (26-34); Mean Corpuscular Volume 69.2 fl (80-100); Mean Platelet Volume 9.2 fl (7.4-10.4); Monocytes Absolute Auto 1.2 K/mm3 (0.1-0.6); Monocytes Percent Auto 12.7 % (2.6-8.5); Neutrophils Absolute Auto 5.9 K/mm3 (1.3-6.7); Neutrophils Percent Auto 61.5 % (45.5-73.1); Platelet Count Result 324 k/mm3 (150-375); Red Blood Count 5.13 M/mm3 (4.6-6.20); Red Cell Distribution Width 22.2 % (11.5-14.5); White Blood Count 9.7 K/mm3 (4.5-10.0)
[2024-06-29 17:19] LABS: Alanine Aminotransferase 14 U/L (6-50); Albumin Level 3.8 g/dL (3.5-5.1); Alkaline Phosphatase 94 U/L (38-126); Anion Gap 9 mmol/L (4-12); Aspartate Amino Transferase 19 U/L (17-59); Bilirubin,Total 0.5 mg/dL (0.2-1.3); Blood Urea Nitrogen 30 mg/dL (9-20); Calcium 8.7 mg/dL (8.4-10.2); Carbon Dioxide 26 mmol/L (22-30); Chloride 100 mmol/L (98-107); Estimated Glomerular Filt Rate 29; Glucose 121 mg/dL (65-110); Potassium 3.8 mmol/L (3.4-5.0); Sodium 135 mmol/L (137-145)
[2024-06-29 17:24] LABS: INR 2.3; Troponin I < 0.012 ng/mL (0.000-0.034)
[2024-06-29 17:25] LABS: Partial Thromboplastin Time 56.5 Seconds (22.3-36.8)
[2024-06-29 17:26] LABS: Anisocytosis 2+; Hypochromasia 2+; Microcytosis 1+ (NORMAL); Ovalocytes 1+; Polychromasia 1+; Schistocytes None Seen
[2024-06-29 17:27] LABS: Platelet Estimate Adequate (Adequate)
[2024-06-29 17:48] LABS: CRP 13.1 mg/dL (<1.0)
--- OUTSIDE RECORDS SUMMARY | 2024-06-29 20:35 | XMS_ITS | Referral Summary ---
Author Organization [facility] [place] [address] [facility] [address] [place] [address] Care Team Providers Care Gizzard Skin Remover Name Role Phone No, Physician Primary Care Provider [phone] Encounters Date Type Department Care Team Description 04/29/2024 Telephone [facility] Medical [facility] Cardiology [address] [place] [address] Chance Williamson MD cardiac clearance [...] 1 tablet (150 mg total) by mouth manager copy before breakfast [address] (CYMBALTA) [...] on file Legal Sex Male 2:17 PM STICKER OPERATOR Gender Identity Not on file Sexual Orientation Not on file Last Filed Vital Signs Vital Sign Reading Time Taken Comments Blood Pressure 128/88 02/09/2024 2:17 PM STICKER OPERATOR Pulse 72 02/09/2024 2:17 PM STICKER OPERATOR Temperature - - Respiratory Rate - - Oxygen Saturation 99% 02/09/2024 2:17 PM STICKER OPERATOR Inhaled Oxygen Concentration - - Weight 90.3 kg (199 lb) 02/09/2024 2:17 PM STICKER OPERATOR Height 175.3 cm (5' 9 ) 02/09/2024 2:17 PM STICKER OPERATOR Body Mass Index 29.39 02/09/2024 2:17 PM STICKER OPERATOR Plan of Treatment Not on file Insurance MEDICARE MEDICARE Care Teams Gizzard Skin Remover Relationship Specialty Start Date End Date No, Physician PCP - General 02/09/24 Dr. Chance Paulson Referring Physician Excavating Supervisor 02/09/24
--- OUTSIDE RECORDS SUMMARY | 2024-06-29 20:35 | XMS_ITS | Clinical Summary ---
Author Organization [facility] [address] [facility] [address] Address [address] [place] [address] Care Team Providers Care Security Tech Name Role Phone No, Physician Primary Care Provider [phone] Allergies No known active allergies Medications amLODIPine [...] 1 tablet (150 mg total) by mouth chemistry quality control technician before breakfast [address] (CYMBALTA) [...] Type Department Care Team Description 04/29/2024 Telephone [facility] Cardiology [address] [facility] [address] [place] [address] Chance Williamson MD cardiac clearance [...] on file Legal Sex Male 2:17 PM MANAGER BATTERY Gender Identity Not on file Sexual Orientation Not on file Obstetrics History Last Filed Vital Signs Vital Sign Reading Time Taken Comments Blood Pressure 128/88 02/09/2024 2:17 PM MANAGER BATTERY Pulse 72 02/09/2024 2:17 PM MANAGER BATTERY Temperature - - Respiratory Rate - - Oxygen Saturation 99% 02/09/2024 2:17 PM MANAGER BATTERY Inhaled Oxygen Concentration - - Weight 90.3 kg (199 lb) 02/09/2024 2:17 PM MANAGER BATTERY Height 175.3 cm (5' 9 ) 02/09/2024 2:17 PM MANAGER BATTERY Body Mass Index 29.39 02/09/2024 2:17 PM MANAGER BATTERY Plan of Treatment Health Maintenance Due Date [...] 12/17/2015, 10/04/2010 Insurance MEDICARE MEDICARE Care Teams Security Tech Relationship Specialty Start Date End Date No, Physician PCP - General 02/09/24 Dr. Chance Paulson Referring Physician Spray Unit Feeder 02/09/24
[2024-06-29] MEDS: oxyCODONE HCL (*CRX) 5 MG TAB IR PO (20:50)
[2024-06-29] MEDS: predniSONE 20 MG TABLET 60 MG PO (20:51)
[2024-06-29 21:26] VITALS: BP 148/89; PULSE 76; RESP 16; TEMP 36.6; O2SAT 98
== END 2024-06-29 21:27 | disposition home or self-care (01) ==
PROVIDERS: Registered Nurse; Emergency Provider Student in an Organized Health Care Education/Training Program
DX: M10.9 Gout, unspecified (principal); I12.9 Hypertensive chronic kidney disease with stage 1 through stage 4 chronic kidney disease, or unspecified chronic kidney disease; N18.9 Chronic kidney disease, unspecified; M79.641 Pain in right hand; I48.91 Unspecified atrial fibrillation; Z86.14 Personal history of Methicillin resistant Staphylococcus aureus infection; Z79.899 Other long term (current) drug therapy; Z79.01 Long term (current) use of anticoagulants; R94.31 Abnormal electrocardiogram [ECG] [EKG]
CPT/HCPCS: 36415; 73130; 80053; 83605; 84484; 85025; 85610; 85730; 86140; 93005; 99284; A9270; J7512

== ENCOUNTER 2024-09-27 17:21 | Emergency (ER) | payer MEDICARE, SELFPAY ==
--- OUTSIDE RECORDS SUMMARY | 2024-09-27 17:24 | XMS_ITS | Referral Summary ---
Author Organization [facility] [address] [facility] [address] Address [address] [place] [address] Care Team Providers Care Roll Grinder Name Role Phone No, Physician Primary Care Provider [phone] Encounters Date Type Department Care Team Description 07/05/2024 Telephone [facility] Medical [facility] Cardiology [address] [place] [address] Chance Williamson MD from Last 3 Months Allergies No known [...] 1 tablet (150 mg total) by mouth tool dresser before breakfast [address] (CYMBALTA) [...] on file Legal Sex Male 2:17 PM BENCH MANAGER Gender Identity Not on file Sexual Orientation Not on file Last Filed Vital Signs Vital Sign Reading Time Taken Comments Blood Pressure 128/88 02/09/2024 2:17 PM BENCH MANAGER Pulse 72 02/09/2024 2:17 PM BENCH MANAGER Temperature - - Respiratory Rate - - Oxygen Saturation 99% 02/09/2024 2:17 PM BENCH MANAGER Inhaled Oxygen Concentration - - Weight 90.3 kg (199 lb) 02/09/2024 2:17 PM BENCH MANAGER Height 175.3 cm (5' 9) 02/09/2024 2:17 PM BENCH MANAGER Body Mass Index 29.39 02/09/2024 2:17 PM BENCH MANAGER Plan of Treatment Not on [place] [address] MEDICARE Care Teams Roll Grinder Relationship Specialty Start Date End Date No, Physician PCP - General 02/09/24 Dr. Chance Paulson Referring Physician Whizzer Operator 02/09/24
--- OUTSIDE RECORDS SUMMARY | 2024-09-27 17:24 | XMS_ITS | Clinical Summary ---
Author Organization [facility] [address] [facility] 162 Address [address] [place] [address] Care Team Providers Care Artist And Repertoire Manager Name Role Phone No, Physician Primary Care Provider [phone] Allergies No known active allergies Medications amLODIPine [...] 1 tablet (150 mg total) by mouth automotive airconditioning mechanic before breakfast [address] (CYMBALTA) [...] Type Department Care Team Description 07/05/2024 Telephone [facility] Medical Group Cardiology [address] [facility] [address] [place] [address] Chance Williamson MD from Last 3 Months Surgical History Surgery [...] on file Legal Sex Male 2:17 PM REPLENISHMENT ASSOCIATE Gender Identity Not on file Sexual Orientation Not on file Obstetrics History Last Filed Vital Signs Vital Sign Reading Time Taken Comments Blood Pressure 128/88 02/09/2024 2:17 PM REPLENISHMENT ASSOCIATE Pulse 72 02/09/2024 2:17 PM REPLENISHMENT ASSOCIATE Temperature - - Respiratory Rate - - Oxygen Saturation 99% 02/09/2024 2:17 PM REPLENISHMENT ASSOCIATE Inhaled Oxygen Concentration - - Weight 90.3 kg (199 lb) 02/09/2024 2:17 PM REPLENISHMENT ASSOCIATE Height 175.3 cm (5' 9) 02/09/2024 2:17 PM REPLENISHMENT ASSOCIATE Body Mass Index 29.39 02/09/2024 2:17 PM REPLENISHMENT ASSOCIATE Plan of Treatment Health Maintenance Due Date Last Done Comments Colon Cancer Screening-Colonoscopy 1955 Depression Screening 1955 Fall Risk Assessment 1955 Hepatitis C Screening 1955 Hepatitis B Screening 08/19/1971 Zoster Vaccine (2 of 3) 07/15/2011 05/20/2011 Abdominal Aortic Aneurysm (A AA) Screen 2018 Well Visit 65+ 2018 Pneumococcal vaccine 65+ (2 of 2 - PCV) 07/03/2020 07/04/2019 Influenza Vaccine (#1) 2024 8, 03/26/2017, 03/23/2017, Additional history exists DTaP/Tdap/Td Vaccine (3 - Td or Tdap) 12/16/2025 12/17/2015, 10/04/2010 Insurance MEDICARE MEDICARE Care Teams Artist And Repertoire Manager Relationship Specialty Start Date End Date No, Physician PCP - General 02/09/24 Dr. Chance Paulson Referring Physician Sporting Goods Salesperson 02/09/24
--- OUTSIDE RECORDS SUMMARY | 2024-09-27 17:24 | XMS_ITS | Clinical Summary ---
Author Organization [facility] Address [address], [place] [address] Phone Care Team Providers Care Senior Medical Transcriptionist Name Role Phone Unavailable Primary Care Provider Unavailabl e Allergies No known active allergies Medications benazepril (LOTENSIN) 10 MG tablet Take 10 mg by mouth 1 (one) time each day Active oxyCODONE HCl 10 MG tablet Take 1 tablet by mouth in the morning and 1 tablet at noon and 1 tablet in the evening. Active tamsulosin (FLOMAX) 0.4 MG 24 hr capsule Take 0.4 mg by mouth 1 (one) time each day Active amLODIPine (NORVASC) 10 MG tablet Take 10 mg by mouth 1 (one) time each day Active DULoxetine (CYMBALTA) [address] capsule Take 60 mg by mouth 1 (one) time each day Active metoprolol succinate XL (TOPROL-XL) 100 MG 24 hr tablet Take 100 mg by mouth 1 (one) time each day Active buPROPion XL (WELLBUTRIN XL) 150 MG 24 hr tablet Take 150 mg by mouth 1 (one) time each day Active rivaroxaban (Xarelto) 20 MG tablet Take 20 mg by mouth 1 (one) time each day Take with food. Active predniSONE (DELTASONE) 50 MG tablet Take 50 mg by mouth 1 (one) time each day Active testosterone cypionate (DEPO-TESTOTERO NE) 200 MG/ML injection Inject into the shoulder, thigh, or buttocks every 14 (fourteen) days Active Active Problems Problem Noted Date Diagnosed Date Anemia 08/25/2024 Chronic kidney disease 08/25/2024 Prediabetes 08/25/2024 Essential hypertension 08/25/2024 Cyst of kidney 08/25/2024 Encounters Date Type Department Care Team Description 08/31/2024 1:20 PM CDT Office Visit [facility] [address] [facility] 1 [place] [address] Jze Horowitz MD Chronic kidney disease, not otherwise specified (Primary Dx); Essential hypertension; Cyst of kidney; Anemia in chronic kidney disease from Last 3 Months Social History Tobacco Use Types Packs/Day Years Used Date Smoking Tobacco: Never Assessed Sex and Gender Information Value Date Recorded Sex Assigned at Not on file Legal Sex Male 2:30 PM MDT Gender Identity Not on file Sexual Orientation Not on file Last Filed Vital Signs Vital Sign Reading Time Taken Comments Blood Pressure 134/70 08/31/2024 2:43 PM CDT Pulse 79 08/31/2024 2:43 PM CDT Temperature - - Respiratory Rate - - Oxygen Saturation - - Inhaled Oxygen Concentration - - Weight 95.3 kg (210 lb) 08/31/2024 2:43 PM CDT Height 170.2 cm (5' 7) 08/31/2024 2:43 PM CDT Body Mass Index 32.89 08/31/2024 2:43 PM CDT Plan of Treatment Upcoming Encounters Date Type Department Care Team ([facility] st Contact Info) Description 12/28/2024 2:20 PM CDT Office Visit [facility] [address] [facility] 1 [place] [address] Jez Horowitz MD [address] [place] [id number] Health Maintenance Due Date Last Done Comments Pneumococcal PPSV23/PCV13 65 + Years / High and Highest Risk (1 of 5 - PCV) 1972 Influenza Vaccine (#1) 2024 Insurance MEDICARE
[2024-09-27 17:27] VITALS: BP 102/60; PULSE 76; RESP 18; TEMP 36.6; O2SAT 100
[2024-09-27 18:02] VITALS: BP 115/69; PULSE 74; RESP 16; TEMP 37.2; O2SAT 100
--- NOTE | 2024-09-27 18:43 | ED_ITS ---
HPI - Dental/Oral General Chief complaint: Ear Stated complaint: ear infection/jaw pain Time Seen by Provider: 09/27/24 18:07 History of Present Illness HPI Narrative: Patient is a 69-year-old male who presents to the ER with complaints of an abscess on his left jaw and right ear pain. He reports he went to urgent care a few weeks ago and was given 6 antibiotics. Patient reports that did not help fix the problem. He reports he went to an your nose and throat doctor who told him nothing was wrong. Patient reports he started experiencing left jaw pain yesterday and it has gotten significantly worse today. He reports he can see a abscess on his gums. Patient denies any recent fevers, mastoid tenderness or neck stiffness. He endorses a history of AFib, knee replacement, high blood pressure, back surgery, and is on blood thinners. Related Data Home Medications ?Medication ?Instructions ?Recorded ?Confirmed ?Last Taken ?Type oxycodone 10 mg tablet 10 mg PO QID PRN Back Pain 04/28/19 06/27/20 04/27/19 History amlodipine 10 mg tablet 10 mg PO DAILY 06/27/20 06/27/20 Unknown History benazepril 10 mg tablet 10 mg PO DAILY 06/27/20 06/27/20 Unknown History bupropion HCl 150 mg 24 hr tablet, 150 mg PO QAM 06/27/20 06/27/20 Unknown History extended release duloxetine 60 mg capsule,delayed 60 mg PO DAILY 06/27/20 06/27/20 Unknown History release Allergies Allergy/AdvReac Type Severity Reaction Status Date / Time No Known Allergies Allergy Verified 09/27/24 18:02 Review of Systems Review of Systems: All systems reviewed & are unremarkable except as noted in HPI and below [facility] Past Medical History Medical History MRSA (methicillin resistant staph aureus) culture positive Atrial fibrillation with rapid ventricular response Hypertension Surgical History Surgical History Previous back surgery H/O hand surgery Social History Social History Smoking status: Never smoker Alcohol intake: never Substance use: current Substance use type: marijuana Gender identity (if verbalized by the patient): Male Spiritual care concerns: No Exam Narrative: GENERAL: Well appearing, well-nourished, non-toxic, in no acute distress. HEAD: Normocephalic, atraumatic. Palpable quarter-sized abscess to lower jaw, not visible in mouth, Tympanic membranes pearly white but visible fluid behind ear drums NECK: Supple. + L cervical lymphadenopathy, no masses. RESPIRATORY: Airway patent, respirations nonlabored. Clear to auscultation bilaterally, no rales, rhonchi, wheezing. CARDIOVASCULAR: Regular rate and rhythm without murmurs, rubs, or gallops. Peripheral pulses 2+ and equal bilaterally. ABDOMINAL: Soft, nontender, nondistended, no hepatosplenomegaly. Normoactive BS. MUSCULOSKELETAL: Moves all extremities. Strength/ROM intact without gross deformities. SKIN: Warm, dry, normal color. No rashes. NEURO: A&O X3. Speech clear. Cranial nerves II-XII intact. No ataxic movements. PSYCHIATRIC: Appropriate mood and affect. Normal interaction. Course Vital Signs Vital signs: Vital Signs Temperature 36.6 C 09/27/24 17:27 Pulse Rate 76 09/27/24 17:27 Respiratory Rate 18 09/27/24 17:27 Blood Pressure 102/60 09/27/24 17:27 Pulse Oximetry 100 09/27/24 17:27 Oxygen Delivery Room Air 09/27/24 17:27 Temperature 37.2 C 09/27/24 18:02 Pulse Rate 74 09/27/24 18:02 Respiratory Rate 16 09/27/24 18:02 Blood Pressure 115/69 09/27/24 18:02 Pulse Oximetry 100 09/27/24 18:02 Oxygen Delivery Room Air 09/27/24 18:02 MDM - Dental/Oral MDM Narrative Medical decision making narrative: Patient is a 69-year-old male who presents to the ER with complaints of an abscess on his left jaw and right ear pain. He reports he went to urgent care a few weeks ago and was given 6 antibiotics. Patient reports that did not help fix the problem. He reports he went to an your nose and throat doctor who told him nothing was wrong. Patient reports he started experiencing left jaw pain yesterday and it has gotten significantly worse today. He reports he can see a abscess on his gums. Patient denies any recent fevers, mastoid tenderness or neck stiffness. He endorses a history of AFib, knee replacement, high blood pressure, back surgery, and is on blood thinners. Labs Ordered: None necessary Imaging Ordered: None necessary Medications Ordered: Augmentin p.o., Tylenol p.o. Diagnosis: Dental abscess, fluid behind ears Risks: HEART score, PECARN score, CURB-65 score Consults: None necessary Patient Education/Shared MDM: Results of examination shared with patient. He e ndorses mild improvement of symptoms following medication administration. Patient strongly advised to maintain hydration status upon discharge and follow- up with his PCP as soon as possible. He will be discharged home with a prescription for prednisone and Augmentin. Strict return precautions provided. Patient verbalized understanding and is in agreement with plan. Vital signs stable at time of discharge. All questions answered. Differential Diagnosis Differential diagnosis: Likely dental caries, toothache, dental abscess and f racture of tooth Discharge Plan Discharge Clinical Impression: Dental abscess, Fluid level behind tympanic membrane of both ears Patient Disposition: Home Condition: Stable Instructions: Antibiotic Form, Dental Abscess (ED) Additional Instructions: Please return to the ER with any worsening symptoms. Follow-up with primary care provider as soon as possible. Take all medications as prescribed, including regularly scheduled medications. Complete your full dose of antibiotics. Patient Language: Syriac Prescriptions: New amoxicillin-pot clavulanate 875-125 mg tablet 1 tablet PO Q12H Qty: 20 0RF methylprednisolone [Medrol (Ye)] 4 mg tablets,dose pack See Rx Instructions .ROUTE .COMPLEX Qty: 21 0RF Rx Instructions: for 6 days No Action duloxetine 60 mg capsule,delayed release(DR/EC) 60 mg PO DAILY bupropion HCl 150 mg tablet extended release 24 hr 150 mg PO QAM benazepril 10 mg tablet 10 mg PO DAILY amlodipine 10 mg tablet 10 mg PO DAILY oxycodone 10 mg tablet 10 mg PO QID PRN (Reason: Back Pain) metoprolol succinate 50 mg Tablet Extended Release 24 Hr 50 mg PO QAM Qty: 30 0RF Xarelto 20 mg Tablet 20 mg PO DAILY@1700 Qty: 30 0RF prednisone 50 mg tablet 50 mg PO DAILY 5 Days Qty: 5 0RF Follow-up/Referrals: UNKNOWN,DOCTOR [Primary Care Provider] - Time of Disposition: 19:01
[2024-09-27] MEDS: ACETAMINOPHEN 500 MG TABLET 1000 MG PO (19:14)
--- OUTSIDE RECORDS SUMMARY | 2024-09-27 19:14 | XMS_ITS | Clinical Summary ---
Author Organization [facility] Address [address], [place] [address] Phone Care Team Providers Care Bed Machine Operator Name Role Phone Unavailable Primary Care Provider [...] Description 08/31/2024 1:20 PM CDT Office Visit [facility] [address] [facility] 1 [place] [address] Jez Horowitz MD Chronic kidney disease, not otherwise [...] Upcoming Encounters Date Type Department Care Team ([facility] st Contact Info) Description 12/28/2024 2:20 PM CDT Office Visit [facility] [address] [facility] 1 [place] [address] Jez Horowitz MD [address] [place] [id number] Health Maintenance Due Date Last Done Comments Pneumococcal PPSV23/PCV13 65 + Years / High and Highest Risk (1 of 5 - PCV) 1972 Influenza Vaccine (#1) 2024 Insurance MEDICARE
--- OUTSIDE RECORDS SUMMARY | 2024-09-27 19:14 | XMS_ITS | Referral Summary ---
Author Organization [facility] [address] [facility] [address] Address [address] [place] [address] Care Team Providers Care Tower Erector Name Role Phone No, Physician Primary Care Provider [phone] Encounters Date Type Department Care Team Description 07/05/2024 Telephone [facility] Medical Group Cardiology [address] [place] [address] Chance Williamson MD from Last [...] 1 tablet (150 mg total) by mouth galley cook before breakfast [address] (CYMBALTA) [...] on file Legal Sex Male 2:17 PM DOBBY LOOMS PEGGER Gender Identity Not on file Sexual Orientation Not on file Last Filed Vital Signs Vital Sign Reading Time Taken Comments Blood Pressure 128/88 02/09/2024 2:17 PM DOBBY LOOMS PEGGER Pulse 72 02/09/2024 2:17 PM DOBBY LOOMS PEGGER Temperature - - Respiratory Rate - - Oxygen Saturation 99% 02/09/2024 2:17 PM DOBBY LOOMS PEGGER Inhaled Oxygen Concentration - - Weight 90.3 kg (199 lb) 02/09/2024 2:17 PM DOBBY LOOMS PEGGER Height 175.3 cm (5' 9) 02/09/2024 2:17 PM DOBBY LOOMS PEGGER Body Mass Index 29.39 02/09/2024 2:17 PM DOBBY LOOMS PEGGER Plan of Treatment Not on file Insurance MEDICARE MEDICARE Care Teams Tower Erector Relationship Specialty Start Date End Date No, Physician PCP - General 02/09/24 Dr. Chance Paulson Referring Physician Care Transitions Manager 02/09/24
--- OUTSIDE RECORDS SUMMARY | 2024-09-27 19:14 | XMS_ITS | Clinical Summary ---
Author Organization [facility] [address] [facility] [address] Address [address] [place] [address] Care Team Providers Care Sorter Laundry Articles Name Role Phone No, Physician Primary Care Provider [phone] Allergies No known active allergies Medications amLODIPine [...] 1 tablet (150 mg total) by mouth early head start teacher before breakfast [address] (CYMBALTA) [...] Type Department Care Team Description 07/05/2024 Telephone [facility] Medical Group Cardiology [address] [facility] [address] [place] [address] Chance Williamson MD from Last [...] on file Legal Sex Male 2:17 PM PROJECT MANAGER RETAIL Gender Identity Not on file Sexual Orientation Not on file Obstetrics History Last Filed Vital Signs Vital Sign Reading Time Taken Comments Blood Pressure 128/88 02/09/2024 2:17 PM PROJECT MANAGER RETAIL Pulse 72 02/09/2024 2:17 PM PROJECT MANAGER RETAIL Temperature - - Respiratory Rate - - Oxygen Saturation 99% 02/09/2024 2:17 PM PROJECT MANAGER RETAIL Inhaled Oxygen Concentration - - Weight 90.3 kg (199 lb) 02/09/2024 2:17 PM PROJECT MANAGER RETAIL Height 175.3 cm (5' 9) 02/09/2024 2:17 PM PROJECT MANAGER RETAIL Body Mass Index 29.39 02/09/2024 2:17 PM PROJECT MANAGER RETAIL Plan of Treatment Health Maintenance Due Date [...] 12/17/2015, 10/04/2010 Insurance MEDICARE MEDICARE Care Teams Sorter Laundry Articles Relationship Specialty Start Date End Date No, Physician PCP - General 02/09/24 Dr. Chance Paulson Referring Physician Lead Blender 02/09/24
[2024-09-27 19:17] VITALS: BP 132/78; PULSE 71; RESP 18; TEMP 37.1; O2SAT 99
== END 2024-09-27 19:19 | disposition home or self-care (01) ==
LOC: ANHED 19:13
PROVIDERS: Emergency Provider Registered Nurse
DX: K04.7 Periapical abscess without sinus (principal); H92.03 Otalgia, bilateral; I48.91 Unspecified atrial fibrillation; I10 Essential (primary) hypertension; Z96.659 Presence of unspecified artificial knee joint; Z86.14 Personal history of Methicillin resistant Staphylococcus aureus infection
CPT/HCPCS: 99283; A9270

== ENCOUNTER 2024-10-17 19:27 | Emergency (ER) | payer MEDICARE, SELFPAY ==
--- NOTE | ~2024-10-17 | XR_ITS ---
Right Shoulder Technique: AP and scapular Y views were obtained. Clinical History: Pain Findings: No fracture or dislocation is seen. Osseous alignment is anatomic. The glenohumeral joint is intact. There is moderate AC joint degenerative change. Soft tissues are unremarkable. Impression: Moderate AC joint degenerative change. Reviewed, dictated and finalized at [facility]. Impression: Moderate AC joint degenerative change.
[2024-10-17 19:29] VITALS: BP 153/92; PULSE 85; RESP 17; TEMP 36.8; O2SAT 100
--- OUTSIDE RECORDS SUMMARY | 2024-10-17 19:30 | XMS_ITS | Clinical Summary ---
Author Organization [facility] Address [address], [place] [address] Phone Care Team Providers Care Talent Sourcing Specialist Name Role Phone Unavailable Primary Care Provider [...] Description 08/31/2024 1:20 PM CDT Office Visit [facility] 1 [place] [address] Jez Horowitz MD Chronic kidney disease, not [...] Upcoming Encounters Date Type Department Care Team ([facility] st Contact Info) Description 12/28/2024 2:20 PM CDT Office Visit [facility] [address] [facility] 1 [place] [address] Jez Horowitz MD [address] [place] [address] Health Maintenance Due Date Last Done Comments Pneumococcal PPSV23/PCV13 65 + Years / High and Highest Risk (1 of 5 - PCV) 1972 Influenza Vaccine (#1) 2024 Insurance MEDICARE
--- OUTSIDE RECORDS SUMMARY | 2024-10-17 19:30 | XMS_ITS | Clinical Summary ---
Author Organization [facility] [address] [facility] 162 [place] [address] Care Team Providers Care Steam Table Attendant Name Role Phone No, Physician Primary Care Provider [phone] Allergies No known active allergies Medications amLODIPine [...] tablet (150 mg total) by mouth early childhood specialist before breakfast [address] (CYMBALTA) [...] Date Diagnosed Date Paroxysmal atrial fibrillation 07/12/2020 Surgical History Surgery Date Site/Laterality Comments HAND [...] on file Legal Sex Male 2:17 PM RESISTANCE WELDER Gender Identity Not on file Sexual Orientation Not on file Obstetrics History Last Filed Vital Signs Vital Sign Reading Time Taken Comments Blood Pressure 128/88 02/09/2024 2:17 PM RESISTANCE WELDER Pulse 72 02/09/2024 2:17 PM RESISTANCE WELDER Temperature - - Respiratory Rate - - Oxygen Saturation 99% 02/09/2024 2:17 PM RESISTANCE WELDER Inhaled Oxygen Concentration - - Weight 90.3 kg (199 lb) 02/09/2024 2:17 PM RESISTANCE WELDER Height 175.3 cm (5' 9) 02/09/2024 2:17 PM RESISTANCE WELDER Body Mass Index 29.39 02/09/2024 2:17 PM RESISTANCE WELDER Plan of Treatment Health Maintenance Due Date [...] 12/17/2015, 10/04/2010 Insurance MEDICARE MEDICARE Care Teams Steam Table Attendant Relationship Specialty Start Date End Date No, Physician PCP - General 02/09/24 Dr. Chance Paulson Referring Physician Manager Relocation 02/09/24
--- NOTE | 2024-10-17 23:13 | ED.GENADULT ---
HPI - General Adult General Chief complaint: Extremity Injury, Upper Stated complaint: R shoulder pain Time Seen by Provider: 10/17/24 22:51 History of Present Illness HPI narrative: 69-year-old male prior history of rotator cuff injury presented to the emergency department for evaluation for worsening rotator cuff pain that is been ongoing for the last few days. Patient initially thought maybe he slept strangely. Patient denies any incident of fall or injury. Patient reports increased pain and limited range of motion of the right shoulder. Patient denies any associated numbness or weakness of the right hand. Related Data Home Medications ?Medication ?Instructions ?Recorded ?Confirmed ?Last Taken ?Type oxycodone 10 mg tablet 10 mg PO QID PRN Back Pain 04/28/19 06/27/20 04/27/19 History Held on 04/28/22. Instructions: No longer out patient amlodipine 10 mg tablet 10 mg PO DAILY 06/27/20 06/27/20 Unknown History Held on 04/28/22. Instructions: No longer out patient benazepril 10 mg tablet 10 mg PO DAILY 06/27/20 06/27/20 Unknown History Held on 04/28/22. Instructions: No longer out patient bupropion HCl 150 mg 24 hr tablet, 150 mg PO QAM 06/27/20 06/27/20 Unknown History extended release Held on 04/28/22. Instructions: No longer out patient duloxetine 60 mg capsule,delayed 60 mg PO DAILY 06/27/20 06/27/20 Unknown History release Held on 04/28/22. Instructions: No longer out patient Allergies Allergy/AdvReac Type Severity Reaction Status Date / Time No Known Allergies Allergy Verified 10/17/24 19:29 Review of Systems Review of Systems: All systems reviewed & are unremarkable except as noted in HPI and below PMFSH Past Medical History Medical History MRSA (methicillin resistant staph aureus) culture positive Atrial fibrillation with rapid ventricular response Hypertension Surgical History Surgical History Previous back surgery H/O hand surgery Social History Social History Smoking status: Never smoker Alcohol intake: never Substance use: current Substance use type: marijuana Gender identity (if verbalized by the patient): Male Spiritual care concerns: No Exam Narrative: APPEARANCE: Well appearing, no pain, no distress, well-nourished. HEAD: normocephalic, atraumatic. EYES: PERRLA/EOMI, conjunctivae clear. NOSE: Normal no drainage EARS:TMS clear with good light reflex. THROAT: Pharynx clear, no exudate. NECK: Supple. No adenopathy, no masses. RESPIRATORY: Airway patent, respirations nonlabored. Clear to auscultation bilaterally, no rales, rhonchi, wheezing. CARDIOVASCULAR: Regular rate and rhythm without murmurs rubs or gallops. ABDOMINAL: Soft, nontender, nondistended, normal bowel sounds MUSCULOSKELETAL: Limited range of motion of right shoulder secondary to pain. NEURO: Alert. Cranial nerves II through XII intact. Good gait. Good coordination SKIN: Warm, dry. Normal Color Course Vital Signs Vital signs: Vital Signs Temperature 98.2 F 10/17/24 19:29 Pulse Rate 85 10/17/24 19:29 Respiratory Rate 17 10/17/24 19:29 Blood Pressure 153/92 H 10/17/24 19:29 Pulse Oximetry 100 10/17/24 19:29 Oxygen Delivery Room Air 10/17/24 19:29 Temperature 98.1 F 10/18/24 00:07 Pulse Rate 76 10/18/24 00:07 Respiratory Rate 16 10/18/24 00:07 Blood Pressure 127/76 10/18/24 00:07 Pulse Oximetry 98 10/18/24 00:07 Oxygen Delivery Room Air 10/17/24 19:29 Medical Decision Making [facility] Narrative Medical decision making narrative: 69-year-old male present to the emergency department for evaluation for right shoulder pain. X-ray was negative for acute fracture dislocation. Patient exam is consistent with a rotator cuff strain versus tear. Patient was provided a sling for comfort control and encouraged close follow-up with his primary care physician for additional outpatient imaging and outpatient follow-up with Orthopedics. Differential Diagnosis Differential Diagnosis: Rotator cuff injury, rotator cuff tear Vital Signs Vital Signs: Vital Signs Temperature 98.2 F 10/17/24 19:29 Pulse Rate 85 10/17/24 19:29 Respiratory Rate 17 10/17/24 19:29 Blood Pressure 153/92 H 10/17/24 19:29 Pulse Oximetry 100 10/17/24 19:29 Oxygen Delivery Room Air 10/17/24 19:29 Temperature 98.1 F 10/18/24 00:07 Pulse Rate 76 10/18/24 00:07 Respiratory Rate 16 10/18/24 00:07 Blood Pressure 127/76 10/18/24 00:07 Pulse Oximetry 98 10/18/24 00:07 Oxygen Delivery Room Air 10/17/24 19:29 Imaging Data My impression: Shoulder x-ray: No acute fracture dislocation Discharge Plan Discharge Clinical Impression: Injury of right rotator cuff Patient Disposition: Home Condition: Stable Instructions: Antibiotic Form, Rotator Cuff Injury (ED), How to Use a Sling (ED), Shoulder Pain (ED) Additional Instructions: Have close follow-up with your primary care physician for an outpatient imaging of an MRI to further evaluate the soft tissues of your shoulder. Have follow-up with orthopedics. Patient Language: Yakut Prescriptions: No Action duloxetine 60 mg capsule,delayed release(DR/EC) 60 mg PO DAILY bupropion HCl 150 mg tablet extended release 24 hr 150 mg PO QAM benazepril 10 mg tablet 10 mg PO DAILY amlodipine 10 mg tablet 10 mg PO DAILY oxycodone 10 mg tablet 10 mg PO QID PRN (Reason: Back Pain) metoprolol succinate 50 mg Tablet Extended Release 24 Hr 50 mg PO QAM Qty: 30 0RF Xarelto 20 mg Tablet 20 mg PO DAILY@1700 Qty: 30 0RF amoxicillin-pot clavulanate 875-125 mg tablet 1 tablet PO Q12H Qty: 20 0RF methylprednisolone [Medrol (Ye)] 4 mg tablets,dose pack See Rx Instructions .ROUTE .COMPLEX Qty: 21 0RF Rx Instructions: for 6 days prednisone 50 mg tablet 50 mg PO DAILY 5 Days Qty: 5 0RF Follow-up/Referrals: Laci Cassidy MD [Physician, Orthopedics] UNKNOWN,DOCTOR [Primary Care Provider]
--- OUTSIDE RECORDS SUMMARY | 2024-10-17 23:45 | XMS_ITS | Clinical Summary ---
Author Organization [facility] Dinah jones Address [address], [place] [address] Phone Care Team Providers Care Foot Orthopedist Name Role Phone Unavailable Primary Care Provider [...] Description 08/31/2024 1:20 PM CDT Office Visit [facility] [address] [place] [address] Jez Horowitz MD Chronic kidney disease, not [...] Upcoming Encounters Date Type Department Care Team ([facility] st Contact Info) Description 12/28/2024 2:20 PM CDT Office Visit [facility] [address] [facility] [address] [place] [address] Jez Horowitz MD [address] [place] [id number] Health Maintenance Due Date Last Done Comments Pneumococcal PPSV23/PCV13 65 + Years / High and Highest Risk (1 of 5 - PCV) 1972 Influenza Vaccine (#1) 2024 Insurance MEDICARE
--- OUTSIDE RECORDS SUMMARY | 2024-10-17 23:45 | XMS_ITS | Clinical Summary ---
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 Gender Identity Not on file Sexual Orientation Not on file Obstetrics History Last Filed Vital Signs Vital Sign Reading Time Taken Comments Blood Pressure 128/88 02/09/2024 2:17 PM GOLF BALL COVER TREATER Pulse 72 02/09/2024 2:17 PM GOLF BALL COVER TREATER Temperature - - Respiratory Rate - - Oxygen Saturation 99% 02/09/2024 2:17 PM GOLF BALL COVER TREATER Inhaled Oxygen Concentration - - Weight 90.3 kg (199 lb) 02/09/2024 2:17 PM GOLF BALL COVER TREATER Height 175.3 cm (5' 9) 02/09/2024 2:17 PM GOLF BALL COVER TREATER Body Mass Index 29.39 02/09/2024 2:17 PM 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 Chance Paulson Referring Physician Gsa Coordinator 02/09/24
[2024-10-18 00:07] VITALS: BP 127/76; PULSE 76; RESP 16; TEMP 36.7; O2SAT 98
== END 2024-10-18 00:08 | disposition home or self-care (01) ==
PROVIDERS: Emergency Provider Emergency Medicine
DX: S46.001A Unspecified injury of muscle(s) and tendon(s) of the rotator cuff of right shoulder, initial encounter (principal); I10 Essential (primary) hypertension; I48.91 Unspecified atrial fibrillation; X58.XXXA Exposure to other specified factors, initial encounter
CPT/HCPCS: 73030; 99283; A4565

== ENCOUNTER 2025-01-17 17:02 | Outpatient (CLI) | payer MEDICARE, SELFPAY ==
[2025-01-17 18:03] LABS: Hematocrit 41.4 % (42.0-52.0); Hemoglobin 11.8 g/dL (14.0-18.0); Mean Corpuscular HGB Conc 28.5 g/dl (32-36); Mean Corpuscular Hemoglobin 20.2 pg (26-34); Mean Corpuscular Volume 70.9 fl (80-100); Platelet Count Result 397 k/mm3 (150-375); Red Blood Count 5.84 M/mm3 (4.6-6.20); White Blood Count 11.3 K/mm3 (4.5-10.0)
[2025-01-17 18:09] LABS: Add Urine Microscopic? YES; Appearance Urine Clear (Clear); Glucose Urine UA Negative (Negative); Leukocyte Esterase Ur Negative LEU/UL (Negative); Nitrate Urine Negative (Negative); Specific Grav Ur 1.019 (1.001-1.035)
[2025-01-17 18:17] LABS: Albumin Level 4.1 g/dL (3.5-5.1); Anion Gap 9 mmol/L (4-12); Blood Urea Nitrogen 29 mg/dL (9-20); Calcium 8.8 mg/dL (8.4-10.2); Carbon Dioxide 27 mmol/L (22-30); Chloride 103 mmol/L (98-107); Estimated Glomerular Filt Rate 33; Glucose 110 mg/dL (65-110); Potassium 3.4 mmol/L (3.4-5.0); Sodium 139 mmol/L (137-145); Uric Acid 7.5 mg/dL (3.5-8.5)
[2025-01-17 18:46] LABS: Hepatitis B Surface Antigen Negative (Negative)
[2025-01-17 19:51] LABS: MALB Creatinine Ratio 591.5 mg/g (0-30)
[2025-01-18 07:09] LABS: Hep B Core Ab, Total Positive (Negative)
[2025-01-19 11:09] LABS: Albumin 3.2 g/dL (2.9-4.4); Alpha-1-Globulin 0.2 g/dL (0.0-0.4); Alpha-2-Globulin 1.0 g/dL (0.4-1.0); Gamma Globulin 0.9 g/dL (0.4-1.8); Immunoglobulin A, Qn 131 mg/dL (61-437); Immunoglobulin G, Qn 954 mg/dL (603-1613); Immunoglobulin M, Qn 85 mg/dL (15-143)
[2025-01-19 18:08] LABS: ANA by IFA Rfx Titer/Pattern Negative (.)
== END 2025-01-17 17:03 | disposition home or self-care (01) ==
PROVIDERS: Visit Provider Internal Medicine Nephrology
DX: N18.9 Chronic kidney disease, unspecified (principal); Z11.3 Encounter for screening for infections with a predominantly sexual mode of transmission
CPT/HCPCS: 36415; 80069; 81001; 82043; 82784; 83970; 84155; 84550; 85027; 86038; 86160; 86162; 86334; 86704; 86803; 87340

== ENCOUNTER 2025-02-07 18:17 | Emergency (ER) | payer MEDICARE, SELFPAY ==
--- NOTE | ~2025-02-07 | CT_ITS ---
EXAM/PROCEDURE: CT knee RT wo con HISTORY: knee pain, negative XR COMPARISON: X-ray same date TECHNIQUE: Right knee CT FINDINGS: No fracture lucency identified. Large joint effusion present. Advanced degenerative changes throughout the knee involving all compartments and osteoarthritic in appearance. IMPRESSION: Large joint effusion and advanced osteoarthritic degenerative changes. No definite fracture. Consider correlation with right knee MRI for optimal sensitivity. NOTE: Preliminary radiology report provided by [facility] radiologist/physician. Reviewed, dictated and finalized at location A. E MECHANIC IMPRESSION: Large joint effusion and advanced osteoarthritic degenerative changes. No defin ite fracture. Consider correlation with right knee MRI for optimal sensitivity. NOTE: Preliminary radiology report provided by [facility] radiologist/physician.
--- NOTE | ~2025-02-07 | XR_ITS ---
Examination: XR knee RT 3V, XR tibia fibula RT 2V, XR ankle RT min 3V Clinical History: trauma Comparison: None Technique: 3 views right knee, 2 views right tibia-fibula, 3 views right ankle Findings/impression: Right knee: 1. Large joint effusion. 2. No fracture or dislocation noted. 3. Moderate tricompartmental degenerative changes. Right tibia-fibula: 1. No fracture identified. Right ankle: 1. No fracture or dislocation. Reviewed, dictated and finalized at location R. BREAKER
--- NOTE | ~2025-02-07 | CT_ITS ---
CT HEAD NON-CONTRAST Clinical History: head injury Comparison: 10/16/2021 Technique: Unenhanced axial images skull base to vertex Coronal, sagittal reformats CT images acquired with automatic exposure control for dose reduction DLP: 757 mGy-cm Findings: Mild white matter changes from chronic microvascular ischemic disease. Sulci, ventricles: Unremarkable. No intracerebral hemorrhage. No evidence acute territorial infarct. No mass effect, midline shift. Bony calvarium intact. Visualized paranasal sinuses: Clear. Mastoid air cells: Clear. IMPRESSION: 1. No acute intracranial findings. Reviewed, dictated and finalized at location R. OL CLEANER
[2025-02-07 18:47] VITALS: BP 147/86; PULSE 90; RESP 18; TEMP 37; O2SAT 100
--- OUTSIDE RECORDS SUMMARY | 2025-02-07 19:15 | XMS_ITS | Clinical Summary ---
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 Gender Identity Not on file Sexual Orientation Not on file Last Filed Vital Signs Vital Sign Reading Time Taken Comments Blood Pressure 128/88 02/09/2024 2:17 PM SAMPLE WORKER Pulse 72 02/09/2024 2:17 PM SAMPLE WORKER Temperature - - Respiratory Rate - - Oxygen Saturation 99% 02/09/2024 2:17 PM SAMPLE WORKER Inhaled Oxygen Concentration - - Weight 90.3 kg (199 lb) 02/09/2024 2:17 PM SAMPLE WORKER Height 175.3 cm (5' 9) 02/09/2024 2:17 PM SAMPLE WORKER Body Mass Index 29.39 02/09/2024 2:17 PM SAMPLE WORKER Plan of Treatment Health Maintenance Due Date [...] 12/17/2015, 10/04/2010 Insurance MEDICARE MEDICARE Care Teams Auto Damage Trainee Relationship Specialty Start Date End Date No, Physician PCP - General 02/09/24 Dr. Chance Paulson Referring Physician Cotton Farmworker 02/09/24
--- OUTSIDE RECORDS SUMMARY | 2025-02-07 19:15 | XMS_ITS | Clinical Summary ---
Author Organization [facility]ones Address [address] [address] Phone Care Team Providers Care Clinical Rehab Specialist Name Role Phone Unavailable Primary Care [...] Problems Problem Noted Date Diagnosed Date Anemia in chronic kidney disease 08/25/2024 Chronic kidney disease 08/25/2024 Essential hypertension 08/25/2024 Cyst of kidney 08/25/2024 Resolved Problems Problem Noted Date Diagnosed Date Resolved Date Prediabetes 08/25/2024 12/22/2024 Social History Tobacco Use Types Packs/Day Years [...] Upcoming Encounters Date Type Department Care Team ([facility] Contact Info) Description 02/15/2025 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
[2025-02-07 21:51] VITALS: BP 124/91; PULSE 90; TEMP 37.2; O2SAT 100
[2025-02-07 21:57] VITALS: BP 163/90; PULSE 85; RESP 18; O2SAT 100
--- NOTE | 2025-02-07 22:18 | ED_ITS ---
HPI - General Adult General Chief complaint: Extremity Injury, Lower Stated complaint: RLE pain/knee pain Time Seen by Provider: 02/07/25 22:00 History of Present Illness HPI narrative: 69-year-old male present to the emergency department for evaluation for head injury and right knee injury. Patient reports he was walking on Thursday had a ground level fall. Patient did strike his head patient injured his right knee. Patient denies loss conscious. Patient is on blood thinners. Patient does complain of right knee pain, lower extremity pain and ankle pain. Patient is requesting medication for pain control. Related Data Home Medications ?Medication ?Instructions ?Recorded ?Confirmed ?Last Taken ?Type oxycodone 10 mg tablet 10 mg PO QID PRN Back Pain 0 04/28/19 06/27/20 04/27/19 History Held on 04/28/22. Instructions: No longer out patient amlodipine 10 mg tablet 10 mg PO DAILY 06/27/2006/01 Unknown History Held on 04/28/22. Instructions: No longer out patient benazepril 10 mg tablet 10 mg PO DAILY 06/27/2006/01 Unknown History Held on 04/28/22. Instructions: No longer out patient bupropion HCl 150 mg 24 hr tablet, 150 mg PO QAM 06/2706/27/20 Unknown History extended release Held on 04/28/22. Instructions: No longer out patient duloxetine 60 mg capsule,delayed 60 mg PO DAILY 06/27/20 Unknown History release Held on 04/28/22. Instructions: No longer out patient Allergies Allergy/AdvReac Type Severity Reaction Status Date / Time No Known Allergies Allergy Verified 02/07/25 18:20 Review of Systems Review of Systems: All systems reviewed & are unremarkable except as noted in HPI and below PMFSH Past Medical History Medical History MRSA (methicillin resistant staph aureus) culture positive Atrial fibrillation with rapid ventricular response Hypertension Surgical History Surgical History Previous back surgery H/O hand surgery Social History Social History Smoking status: Never smoker Alcohol intake: never Substance use: current Substance use type: marijuana Gender identity (if verbalized by the patient): Male Spiritual care concerns: No Exam Narrative: APPEARANCE: Well appearing, no pain, no distress, well-nourished. HEAD: normocephalic, atraumatic. EYES: PERRLA/EOMI, conjunctivae clear. NOSE: Normal no drainage EARS:TMS clear with good light reflex. THROAT: Pharynx clear, no exudate. NECK: Supple. No adenopathy, no masses. RESPIRATORY: Airway patent, respirations nonlabored. Clear to auscultation bilaterally, no rales, rhonchi, wheezing. CARDIOVASCULAR: Regular rate and rhythm without murmurs rubs or gallops. ABDOMINAL: Soft, nontender, nondistended, normal bowel sounds MUSCULOSKELETAL: Right knee effusion, tenderness to palpation NEURO: Alert. Cranial nerves II through XII intact. Good gait. Good coordination SKIN: Warm, dry. Normal Color Course Vital Signs Vital signs: Vital Signs Temperature 98.6 F 02/07/25 18:47 Pulse Rate 90 02/07/25 18:47 Respiratory Rate 18 02/07/25 18:47 Blood Pressure 147/86 H 02/07/25 18:47 Pulse Oximetry 100 02/07/25 18:47 Oxygen Delivery Room Air 02/07/25 18:47 Temperature 98.9 F 02/07/25 21:51 Pulse Rate 99 02/08/25 01:58 Respiratory Rate 16 02/08/25 01:58 Blood Pressure 131/89 02/08/25 01:58 Pulse Oximetry 100 02/08/25 01:58 Oxygen Delivery Room Air 02/07/25 21:57 [facility] Narrative Medical decision making narrative: 69-year-old male presents emergency department for evaluation for head injury and right knee pain. Knee x-ray was negative for fracture but knee CT was ordered to further evaluate for occult fracture due to the effusion and knee p ain. CT was negative for acute abnormality of the knee. CT brain was negative for subdural hematoma or subarachnoid hemorrhage. Patient was placed in knee immobilizer was able to ambulate with a walker. Patient and family were comfortable the plan for discharge and close follow-up with Orthopedics as outpatient. All questions concerns were addressed patient was well-appearing at time of discharge. Differential Diagnosis Differential Diagnosis: Subdural hematoma, subarachnoid hemorrhage, knee contusion, knee fracture, ankle fracture. Imaging Data Attestation: I personally reviewed and interpreted this imaging study as follows: My impression: X-ray tib-fib; no acute fracture dislocation X-ray ankle: No acute fracture dislocation Radiologist's impression: Overnight read X-ray knee no acute osseous finding. Consider cross-sectional imaging if there is further concern. Large knee joint effusion. CT brain no acute intracranial abnormality. Discharge Plan Discharge Clinical Impression: Injury of knee, Head injury Patient Disposition: Home Condition: Stable Instructions: Antibiotic Form, Knee Immobilizer (ED) Additional Instructions: Knee immobilizer for ambulation. Utilize a walker or wheelchair for ambulation. Shaniko for pain control. Have close follow-up with your orthopedic surgeon. If you have any worsening symptoms then please call or return to the emergency department. Patient Language: Congolese Prescriptions: New hydrocodone-acetaminophen 5-325 mg tablet 1 tablet PO Q12H PRN (Reason: pain) Qty: 14 0RF No Action duloxetine 60 mg capsule,delayed release(DR/EC) 60 mg PO DAILY bupropion HCl 150 mg tablet extended release 24 hr 150 mg PO QAM benazepril 10 mg tablet 10 mg PO DAILY amlodipine 10 mg tablet 10 mg PO DAILY oxycodone 10 mg tablet 10 mg PO QID PRN (Reason: Back Pain) metoprolol succinate 50 mg Tablet Extended Release 24 Hr 50 mg PO QAM Qty: 30 0RF Xarelto 20 mg Tablet 20 mg PO DAILY@1700 Qty: 30 0RF amoxicillin-pot clavulanate 875-125 mg tablet 1 tablet PO Q12H Qty: 20 0RF methylprednisolone [Medrol (Ye)] 4 mg tablets,dose pack See Rx Instructions .ROUTE .COMPLEX Qty: 21 0RF Rx Instructions: for 6 days prednisone 50 mg tablet 50 mg PO DAILY 5 Days Qty: 5 0RF Follow-up/Referrals: Kyle Lobo MD [Physician, Orthopedics] PHYSICIAN,LOAN SERVICES PROFESSIONAL [Primary Care Provider, Internal Medicine]
[2025-02-07] MEDS: HYDROmorphone HCL INJ (*CRX) 1 MG/ML SYR IM (22:42)
[2025-02-07 23:23] VITALS: PULSE 104; RESP 18; O2SAT 100
[2025-02-08 01:58] VITALS: BP 131/89; PULSE 99; RESP 16; O2SAT 100
== END 2025-02-08 01:59 | disposition home or self-care (01) ==
PROVIDERS: Emergency Provider Emergency Medicine
DX: S09.90XA Unspecified injury of head, initial encounter (principal); S89.91XA Unspecified injury of right lower leg, initial encounter; I48.91 Unspecified atrial fibrillation; I10 Essential (primary) hypertension; Z86.14 Personal history of Methicillin resistant Staphylococcus aureus infection; W18.30XA Fall on same level, unspecified, initial encounter
CPT/HCPCS: 70450; 73562; 73590; 73610; 73700; 96372; 99284; J1171